=== PATIENT | male | born 1955 | race Caucasian/White ===

== ENCOUNTER 2019-10-23 00:02 | Inpatient (IN) | payer OTHER ==
[2019-10-23 00:23] VITALS: BMI 33.7
--- NOTE | 2019-10-23 00:39 | PDOC ---
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 He stated that the pain started yesterday, localized in the right quadrants. He had watery bowel movements yesterday, otherwise last solid stool was 3 days ago. Reports nausea, vomiting. Denies chest pain, SOB, fever, dysuria, testicular pain/swelling, hematochezia HPI PMH: as in HPI SH: as in HPI Meds: Allergies: NKDA Tob/Etoh/Rec drugs: negx3 PCP: ROS GENERAL/CONSTITUTIONAL: No fever or chills. No weakness. HEENT: No change in vision. No ear pain or discharge. No sore throat. CARDIOVASCULAR: No chest pain or shortness of breath RESPIRATORY: No cough, wheezing, or hemoptysis. GASTROINTESTINAL: +nausea, vomiting; no diarrhea or constipation. GENITOURINARY: No dysuria, frequency, or change in urination. MUSCULOSKELETAL: No joint or muscle swelling or pain. No neck or back pain. SKIN: No rash NEUROLOGIC: No headache, vertigo, loss of consciousness, or change in strength/sensation. ENDOCRINE: No increased thirst. No abnormal weight change HEMATOLOGIC/LYMPHATIC: No anemia, easy bleeding, or history of blood clots. ALLERGIC/IMMUNOLOGIC: No hives or skin allergy. PE GENERAL: Awake, alert, and fully oriented, in no acute distress HEAD: No signs of trauma, normocephalic, atraumatic EYES: PERRLA, EOMI, sclera anicteric, conjunctiva clear ENT: Auricles normal inspection, hearing grossly normal, nares patent, oropharynx clear without exudates. Moist mucosa NECK: Normal ROM, supple, no LAD, JVD, or masses HEART: Regular rate and rhythm, normal S1 and S2, no murmurs, rubs or gallops, peripheral pulses normal and equal bilaterally. LUNGS: No distress, speaks full sentences, clear to auscultation bilaterally ABDOMEN: Distended, diffusely mild tenderness, normoactive bowel sounds. No guarding, no rebound. No masses EXTREMITIES: Normal inspection, Normal range of motion, no edema. No clubbing or cyanosis. NEUROLOGICAL: Normal speech, no focal sensorimotor deficits SKIN: Warm, Dry, normal turgor, no rashes or lesions noted Assessment and Plan 1. SBO 2. Mesenteric ischemia 3. Bowel perforation 4. Volvulus 5. Diverticulitis 6. Gastritis Franck Camejo, PGY1 Emergency Medicine Past History - Medical History Allergies/Adverse Reactions: Allergies Allergy/AdvReac Type Severity Reaction Status Date / Time No Known Allergies Allergy Verified 08/09/19 05:15 Home Medications: Ambulatory Orders Aspirin [Aspirin EC] 81 mg PO DAILY 05/22/19 Atorvastatin Calcium 10 mg PO DAILY 05/22/19 Cholecalciferol (Vitamin D3) [Vitamin D3 -] 1,000 unit PO DAILY 05/22/19 Metoprolol Tartrate 25 mg PO BID 05/22/19 Omeprazole 20 mg PO DAILY 05/22/19 Finasteride 5 mg PO DAILY 08/12/19 Amoxicillin/Potassium Clav [Augmentin 875-125 Tablet] 1 each PO BID #10 tablet 08/13/19 Docusate Sodium [Colace -] 100 mg PO BID PRN #60 cap 08/13/19 Anemia: No Asthma: No Cancer: No Cardiac Disorders: No CVA: No COPD: No CHF: No Dementia: No Diabetes: No GI Disorders: Yes (GERD) Disorders: Yes (HX of UTIs) HTN: Yes Hypercholesterolemia: No Liver Disease: No Seizures: No Thyroid Disease: No - Surgical History Abdominal Surgery: Yes Appendectomy: Yes Cardiac Surgery: No Cholecystectomy: Yes Lung Surgery: No Neurologic Surgery: No Orthopedic Surgery: No - Immunization History Immunization Up to Date: Yes - Psycho-Social/Smoking History Smoking History: Unknown if ever smoked Have you smoked in the past 12 months: No - Substance Abuse Hx (Audit-C & DAST Scrn) How often the patient has a drink containing alcohol: Never Score: In Men: 4 or > Positive; In Women: 3 or > Positive: 0 Screen Result (Pos requires Nsg. Audit-10AR): Negative In the last yr the pt used illegal drug/Rx for NonMed reason: No Score: Yes response is considered Positive: 0 Screen Result (Positive result requires Nsg. DAST-10): Negative *Physical Exam - Vital Signs Last Vital Signs Temp Pulse Resp BP Pulse Ox 99.1 F 112 H 18 118/88 96 10/23/19 00:18 10/23/19 00:18 10/23/19 00:18 10/23/19 00:18 10/23/19 00:18 ED Treatment Course - LABORATORY CBC & Chemistry Diagram: 10/23/19 01:00 10/23/19 01:00 - RADIOLOGY Radiology Studies Ordered: Upright and supine abdomen + CXR Radiograph Interpretation: ABDOMEN FLAT \T\ UPRIGHT FINDINGS: Multiple air distended loops of bowel suggests a bowel obstruction. Medical quadrant cholecystectomy clips are noted. The lung bases are clear. The re is no solid organomegaly or abnormal calcifications. Degenerative changes of the spine. IMPRESSION: Possible bowel obstruction. 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 Abdomen was distended, mildly tender, without rebound or guarding. DDx: 1. SBO - strong suspicion with prior history and lack of BMs 2. Mesenteric ischemia 3. Bowel perforation - unlikely without peritoneal signs 4. Volvulus - unlikely without peritoneal signs 5. Diverticulitis - no hematochezia, hx is stronger suggestion of SBO -Given 4mg zofran Labs notable for: -CBC wnl -CMP: K 3.4, bili and alk phos elevated consistent with previous labs -lipase wnl -UA +1 blood, +3 leukocyte esterace, 2700 WBC, 900 bacteria Patient has asymptomatic bacteruria, there's no indication to treat with antibiotics. Plain films were preferred over abdomen CT since the patient had multiple abdominal CT's in the past, and likely unnecessary because the patient is unlikely a surgical candidate at this time and further imaging is up to the discretion of general surgery. ABDOMEN FLAT/T/UPRIGHT: Multiple air distended loops of bowel suggests a bowel obstruction. Discussed HPI, ED course, and decision to admit with Karma Casey NP. NG tube placed and NPO ordered. Pt admitted to m/s. Gen surg consulted, spoke with Dr. Franklin, agreed to see the patient. Discharge - Discharge Information Problems reviewed: Yes Clinical Impression/Diagnosis: SBO (small bowel obstruction) - Admission Yes - Follow up/Referral - Patient Discharge Instructions - Post Discharge Activity
[2019-10-23] MEDS ORDERED: ONDANSETRON 4 MG/2 ML VIAL IVPUSH ONE (01:07)
[2019-10-23] MEDS ORDERED: LACTATED RINGERS SOLUTION 1000 ML INFUS.BAG IV ONE (01:11)
--- NOTE | 2019-10-23 01:32 | PDOC ---
Documentation entered by Nichole Garcia SCRIBE, acting as scribe for Marian Arce MD. Marian Arce MD: This documentation has been prepared by the Radha jacob Sydney, SCRIBE, under my direction and personally reviewed by me in its entirety. I confirm that the documentation accurately reflects all work, treatment, procedures, and medical decision making performed by me. 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 States feels similar to previous episodes of obstruction. Reports nausea and vomiting. Denies fever, chills, headache, chest pain, shortness of breath, or urinary changes. Allergies: NKDA PCP: Dr. Prado - Physicial Exam PE: 10/23/19 01:29 General: non-toxic appearing Abdomen: obese limiting exam, soft, mild diffuse ttp, no rebound, no guarding - Medical Decision Making 10/23/19 01:29 64 yo M p/w abdominal pain, concern for SBO given h/o obstruction in hte past, also possible constipation vs. gastritis vs. enteritis vs. colitis vs. diverticulitis. Plan: -labs -cxr -will start with AXR as patient has had multiple CT scans in the past for same managed conservatively with medical management alone -pain control as needed -reassess This clinical encounter is taking place during a federal and state health care emergency attributable to the novel [place] Virus pandemic. The Head Of Art of the Department of Health and Human Services has declared, pursuant to the Public Health Service Act 319F-3 (42 U.S.C. 247d-6d), that a covered persons activities related to medical countermeasures against COVID-19 will be immune from liability under Federal and State law. 10/23/19 03:43 AXR with findings concerning for obstruction. Will place NG tube and place surgery consult and admit patient. Discharge - Discharge Information Problems reviewed: Yes Clinical Impression/Diagnosis: SBO (small bowel obstruction) - Follow up/Referral Referrals: Tatyana Prado [Primary Care Provider] - - Patient Discharge Instructions - Post Discharge Activity
[2019-10-23 01:37] LABS: BASO % 0.7 % (0-2.0); EOS % 1.2 % (0-4.5); HEMOGLOBIN 14.9 GM/dL (11.7-16.9); LYMPH % 9.6 % (8-40); MCH 25.9 pg (25.7-33.7); MCHC 33.1 g/dl (32.0-35.9); MEAN CELL VOLUME 78.3 fl (80-96); MEAN PLT VOLUME 8.3 fl (7.5-11.1); MONO % 8.9 % (3.8-10.2); NEUT % 79.6 % (42.8-82.8); PLATELET COUNT 257 K/MM3 (134-434); RBC 5.75 M/mm3 (4.00-5.60); RDW 14.7 % (11.9-15.9); WHITE BLOOD COUNT 10.3 K/mm3 (4.0-10.0)
[2019-10-23 01:47] LABS: ALBUMIN 3.4 g/dl (3.4-5.0); BILIRUBIN,TOTAL 1.8 mg/dL (0.2-1); BLOOD UREA NITROGEN 16.3 mg/dL (7-18); CALCIUM 8.9 mg/dL (8.5-10.1); CREATININE 1.3 mg/dL (0.55-1.3); POTASSIUM 3.4 mmol/L (3.5-5.1); TOT PROT 7.2 g/dl (6.4-8.2)
[2019-10-23 02:19] LABS: EPI CELLS 2 /uL (0-25.1); HYALINE CASTS 2 /uL (0-3.1); PH,URINE 5.5 (5.0-8.0); URINE APPEARANCE CLOUDY; URINE BACTERIA 742 /uL (0-1359); URINE BILIRUBIN NEGATIVE (NEGATIVE); URINE COLOR YELLOW; URINE GLUCOSE (UA) NEGATIVE (NEGATIVE); URINE KETONE NEGATIVE (NEGATIVE); URINE LEUK ESTERASE 3+ (NEGATIVE); URINE NITRITE NEGATIVE (NEGATIVE); URINE PROTEIN TRACE (NEGATIVE); URINE RBC 86 /uL (0-23.9); URINE WBC 2798 /uL (0-25.8)
[2019-10-23] MEDS ORDERED: LIDOCAINE HCL 2% JELLY 10 ML CARTRIDGE UR ONE (03:18)
[2019-10-23] MEDS ORDERED: LIDOCAINE HCL 2% JELLY 10 ML CARTRIDGE ONE (03:31)
[2019-10-23] MEDS ORDERED: LIDOCAINE HCL 2% JELLY (5 ML/TUBE) ONE (03:43)
[2019-10-23] MEDS ORDERED: DEXTROSE 5%-0.45% SALINE 1,000 ML IV SCH (04:00)
[2019-10-23] MEDS ORDERED: CEFTRIAXONE 1 GM in DEXTROSE 5%-WATER - 50 ML IVPB ONE (04:03)
--- NOTE | 2019-10-23 04:03 | HP ---
Admitting History and Physical - Primary Care Physician PCP: Tatyana Prado - Admission Chief Complaint: Abdominal Pain, Constipation History of Present Illness: This is a 64 y/o male with a significant past medical history of multiple SBOs (complicated fistula), HTN, PE, Nephrolithiasis, UTIs. Who presents to the ED with diffuse abdominal pain, nausea, dry heaves, and watery loose stools x 1 day. He reports not having a solid BM in 3 days. Patient reports that the abdominal pain is similar to his previous bowel obstructions. Patient denies fever, but reports having chills while in the ED. He denies cough, SOB, dizziness, WALL, CP, palpitations, melena, hematochezia, hematuria, dysuria. Patient denies sick contacts or recent travel. ED course was noted for: (1) Abdominal Xray image- multiple air distended loops, suggests bowel obstruction (2) WBC 10.3 (3) K- 3.4 (4) UA- cloudy, +1 blood, +3 leukocyte esterase, 2798 WBC, 742 Bacteria History Source: Patient Limitations to Obtaining History: No Limitations - Past Medical History Cardiovascular: Yes: HTN, Hyperlipdemia Pulmonary: Yes: Pulmonary Embolus (2013 (not on anticoagulation currently)) Gastrointestinal: Yes: Other (SBO) Renal/: Yes: BPH, Renal Calculi, UTI Musculoskeletal: Yes: Chronic low back pain - Past Surgical History Past Surgical History: Yes: Cholecystectomy, Colonoscopy, Hernia Repair (multiple - mesh present (2014) (prev mesh removed in 2013)), Upper Endoscopy - Smoking History Smoking history: Unknown if ever smoked Have you smoked in the past 12 months: No - Alcohol/Substance Use Hx Alcohol Use: No History of Substance Use: reports: None - Social History Usual Living Arrangement: Yes: Alone ADL: Independent Occupation: CPA History of Recent Travel: No Home Medications - Allergies Allergies/Adverse Reactions: Allergies Allergy/AdvReac Type Severity Reaction Status Date / Time No Known Allergies Allergy Verified 08/09/19 05:15 - Home Medications Home Medications: Ambulatory Orders Aspirin [Aspirin EC] 81 mg PO DAILY 05/22/19 Atorvastatin Calcium 10 mg PO DAILY 05/22/19 Cholecalciferol (Vitamin D3) [Vitamin D3 -] 1,000 unit PO DAILY 05/22/19 Metoprolol Tartrate 25 mg PO BID 05/22/19 Omeprazole 20 mg PO DAILY 05/22/19 Finasteride 5 mg PO DAILY 08/12/19 Amoxicillin/Potassium Clav [Augmentin 875-125 Tablet] 1 each PO BID #10 tablet 08/13/19 Docusate Sodium [Colace -] 100 mg PO BID PRN #60 cap 08/13/19 Family Medical History Family History: As Documented Family Hx Cancer: Father (Pancreatic) Family Hx Diabetes: Mother Review of Systems - Review of Systems Constitutional: reports: Chills, Loss of Appetite Eyes: reports: No Symptoms HENT: reports: No Symptoms Neck: reports: No Symptoms Cardiovascular: reports: No Symptoms Respiratory: reports: No Symptoms Gastrointestinal: reports: Abdominal Pain, Bloating, Constipation, Diarrhea, Nausea Genitourinary: reports: No Symptoms Breasts: reports: No Symptoms Reported Musculoskeletal: reports: Back Pain Integumentary: reports: No Symptoms Neurological: reports: No Symptoms Endocrine: reports: No Symptoms Hematology/Lymphatic: reports: No Symptoms Psychiatric: reports: No Symptoms Pain Intensity: 8 Physical Examination Vital Signs: Vital Signs Temperature 99.1 F 10/23/19 00:18 Pulse Rate 112 H 10/23/19 00:18 Respiratory Rate 18 10/23/19 00:18 Blood Pressure 118/88 10/23/19 00:18 O2 Sat by Pulse Oximetry (%) 96 10/23/19 00:18 Constitutional: Yes: Well Nourished, Mild Distress, Obese Eyes: Yes: Conjunctiva Clear, EOM Intact, PERRL HENT: Yes: Atraumatic, Normocephalic, Other (dry mucousa NGT- nare) Neck: Yes: Supple, Trachea Midline Cardiovascular: Yes: Regular Rate and Rhythm, S1, S2 Respiratory: Yes: Regular, CTA Bilaterally Gastrointestinal: Yes: Abdomen, Obese, Distention, Hyperactive Bowel Sounds, Tenderness, Tenderness, Epigastrium Renal/: Yes: WNL Breast(s): Yes: WNL Musculoskeletal: Yes: Back Pain Extremities: Yes: WNL Edema: No Peripheral Pulses WNL: Yes Wound/Incision: Yes: Other (surgical scar midline) Neurological: Yes: WNL, Alert, Oriented, Cran Nerves II-XII Intact ...Motor Strength: WNL Psychiatric: Yes: WNL, Alert, Oriented Labs: CBC, BMP 10/23/19 01:00 10/23/19 01:00 Laboratory Results - last 24 hr 10/23/19 10/23/19 10/23/19 01:00 01:00 01:56 WBC 10.3 H RBC 5.75 H Hgb 14.9 Hct 45.0 MCV 78.3 L MCH 25.9 MCHC 33.1 RDW 14.7 Plt Count 257 D MPV 8.3 Absolute Neuts (auto) 8.2 H Neutrophils % 79.6 Lymphocytes % 9.6 D Monocytes % 8.9 Eosinophils % 1.2 Basophils % 0.7 Nucleated RBC % 0 Sodium 138 Potassium 3.4 L Chloride 100 Carbon Dioxide 28 Anion Gap 10 BUN 16.3 Creatinine 1.3 Est GFR (CKD-EPI)AfAm 67.78 Est GFR (CKD-EPI)NonAf 58.48 Random Glucose 119 H Lactic Acid Calcium 8.9 Total Bilirubin 1.8 H AST 18 ALT 27 Alkaline Phosphatase 130 H Total Protein 7.2 Albumin 3.4 Lipase 97 Urine Color Yellow Urine Appearance Cloudy Urine pH 5.5 Ur Specific [place] 1.017 Urine Protein Trace Urine Glucose (UA) Negative Urine Ketones Negative Urine Blood 1+ H Urine Nitrite Negative Urine Bilirubin Negative Urine Urobilinogen 1.0 Ur Leukocyte Esterase 3+ H Urine WBC (Auto) 2798 Urine RBC (Auto) 86 Urine Casts (Auto) 2 U Epithel Cells (Auto) 2 Urine Bacteria (Auto) 742 10/23/19 03:30 WBC RBC Hgb Hct MCV MCH MCHC RDW Plt Count MPV Absolute Neuts (auto) Neutrophils % Lymphocytes % Monocytes % Eosinophils % Basophils % Nucleated RBC % Sodium Potassium Chloride Carbon Dioxide Anion Gap BUN Creatinine Est GFR (CKD-EPI)AfAm Est GFR (CKD-EPI)NonAf Random Glucose Lactic Acid 1.8 Calcium Total Bilirubin AST ALT Alkaline Phosphatase Total Protein Albumin Lipase Urine Color Urine Appearance Urine pH Ur Specific [place] Urine Protein Urine Glucose (UA) Urine Ketones Urine Blood Urine Nitrite Urine Bilirubin Urine Urobilinogen Ur Leukocyte Esterase Urine WBC (Auto) Urine RBC (Auto) Urine Casts (Auto) U Epithel Cells (Auto) Urine Bacteria (Auto) Intake & Output 10/20/19 10/21/19 10/22/19 10/23/19 23:59 23:59 23:59 23:59 Intake Total 150 Output Total 250 Balance -100 Weight 112.7 kg Imaging - Results Chest X-ray: Image Reviewed X-ray: Image Reviewed Problem List - Problems (1) SBO (small bowel obstruction) Assessment/Plan: Likely secondary to adhesions Abdominal Xray image reviewed- multiple air distended loops, suggests bowel obstruction WBC 10.3 T Max 99.1 Appreciate Surgical Consult- Dr Franklin aware- per ED resident NGT- low wall suction NPO IVF Ofirmev prn Zofran prn Monitor CBC, CMP Monitor vitals Code(s): K56.609 - UNSP INTESTNL OBST, UNSP TO PARTIAL VERSUS COMPLETE OBST (2) UTI (urinary tract infection) Assessment/Plan: UA- cloudy, +1 blood, +3 leukocyte esterase, 2798 wbc, 742 bacteria Urine Culture-pending Patient is asymptomatic, hx of UTIs Enterococcus Faecalis hx Will treat empirically with Ceftriaxone, until culture resulted Monitor CBC Monitor vitals Code(s): N39.0 - URINARY TRACT INFECTION, SITE NOT SPECIFIED (3) GERD without esophagitis Assessment/Plan: stable PPI Code(s): K21.9 - GASTRO-ESOPHAGEAL REFLUX DISEASE WITHOUT ESOPHAGITIS (4) BPH (benign prostatic hyperplasia) Assessment/Plan: will hold med for now 2/2 SBO Code(s): N40.0 - BENIGN PROSTATIC HYPERPLASIA WITHOUT LOWER URINRY TRACT SYMP Qualifiers: Lower urinary tract symptom presence: symptoms absent Qualified Code(s): N40.0 - Benign prostatic hyperplasia without lower urinary tract symptoms (5) Hypertension Assessment/Plan: stable Monitor BP Hold PO med for now Treat with Lopressor IV as needed Monitor renal function Code(s): I10 - ESSENTIAL (PRIMARY) HYPERTENSION Qualifiers: Hypertension type: essential hypertension Qualified Code(s): I10 - Essential (primary) hypertension (6) Encounter for screening laboratory testing for COVID-19 virus Assessment/Plan: Low Risk COVID PCR- pending Isolation Precautions Code(s): Z11.59 - ENCOUNTER FOR SCREENING FOR OTHER VIRAL DISEASES Assessment/Plan This is a 64 y/o male with a significant past medical history of multiple SBOs (complicated by fistula), HTN, PE, Nephrolithiasis, UTIs. Admitted to M/S for Bowel Obstruction, UTI for further evaluation of their emergent condition. Plan: See Problem List FEN D51/2NS@75ml/hr Replete lytes prn NPO DVT ppx OOB SCDs Lovenox SQ Dispo: Requires Inpatient Care Visit type - Emergency Visit Emergency Visit: Yes ED Registration Date: 10/23/19 Care time: The patient presented to the Emergency Department on the above date and was hospitalized for further evaluation of their emergent condition. - New Patient This patient is new to me today: Yes Date on this admission: 10/23/19 - Critical Care Critical Care patient: No
[2019-10-23] MEDS ORDERED: KCL 10 MEQ IVPB 10 MEQ/100 ML INFUS.BAG IVPB SCH (04:15)
[2019-10-23] MEDS ORDERED: CEFTRIAXONE 1 GM/50 ML BAG ONE (04:16)
[2019-10-23] MEDS ORDERED: KCL 10 MEQ IVPB 10 MEQ/100 ML INFUS.BAG IVPB ONE (04:16)
[2019-10-23 04:55] LABS: URINE CRYSTALS CA OXALATE /hpf
[2019-10-23] MEDS ORDERED: ACETAMINOPHEN 1000 MG/100 ML VIAL (NON FORMULARY) IVPB PRN (05:29)
[2019-10-23] MEDS ORDERED: ONDANSETRON 4 MG/2 ML VIAL IVPUSH PRN (05:30)
--- NOTE | 2019-10-23 11:13 | CONSULT ---
- Consultation REQUESTING PROVIDER: Franck Camejo MD CONSULT REQUEST: We have been asked to surgically evaluate this patient for a recurrent small bowel obstruction PCP:Tomás Rossi HISTORY OF PRESENT ILLNESS: CASSANDRA who is a 64 y/o W male who presented to the [facility] ED w/nausea and vomiting and abdominal pain after taking Miralax to relieve his constipation; the patient has been here w/the same c/o's at least 2 other occasions in the recent past and was dxed w/an SBO; he has responded to conservative tx. in the past; he has been sick for 24 hours. past admissions have been reviewed including when I last consulted on him 08/09/2019-08/13/2019; hospital course to date reviewed. PMHx: HLD/osteoporosis/HTN/BPH/pulmonary embolus PSHx: cholecystetomy, incisional hernia repairs w/mesh and removal and repeat incisional hernia repair w/mesh, SBO's w/laparotomies and SB resection (at least 2), all at [facility] including laparotomy for surgical repair and related procedures for an EC fistula. Home Medications Medication Instructions Recorded Aspirin [Aspirin EC] 81 mg PO DAILY 05/22/19 Atorvastatin Calcium 10 mg PO DAILY 05/22/19 Cholecalciferol (Vitamin D3) 1,000 unit PO DAILY 05/22/19 [Vitamin D3 -] Metoprolol Tartrate 25 mg PO BID 05/22/19 Omeprazole 20 mg PO DAILY 05/22/19 Finasteride 5 mg PO DAILY 08/12/19 Amoxicillin/Potassium Clav 1 each PO BID #10 tablet 08/13/19 [Augmentin 875-125 Tablet] Docusate Sodium [Colace -] 100 mg PO BID PRN #60 cap 08/13/19 Allergies Allergy/AdvReac Type Severity Reaction Status Date / Time No Known Allergies Allergy Verified 08/09/19 05:15 REVIEW OF SYSTEMS: CONSTITUTIONAL: Absent: fever, chills, diaphoresis, generalized weakness, malaise, loss of appetite, weight change CARDIOVASCULAR: Absent: chest pain, syncope, palpitations, irregular heart rate, lightheadedness, peripheral edema RESPIRATORY: Absent: cough, shortness of breath, dyspnea with exertion, wheezing, stridor, hemoptysis GASTROINTESTINAL: Absent: abdominal pain, abdominal distension, nausea, vomiting, Absent:diarrhea, Present: constipation, Absent: melena, hematochezia GENITOURINARY: Present: dysuria, frequency, urgency, hesitancy, Absent: hematuria, flank pain, genital pain MUSCULOSKELETAL: Absent: myalgia, arthralgia, joint swelling, back pain, neck pain SKIN: Absent: rash, itching, pallor HEMATOLOGIC/IMMUNOLOGIC: Absent: easy bleeding, easy bruising, lymphadenopathy NEUROLOGIC: Absent: headache, focal weakness, paresthesias, dizziness, unsteady gait, seizure, mental status changes, bladder or bowel incontinence PSYCHIATRIC: Absent: anxiety, depression, suicidal or homicidal ideation, hallucinations. PHYSICAL EXAM: GENERAL: Awake, alert, and fully oriented, in no acute distress. HEAD: Normal with no signs of trauma. EYES: PERRL, sclera anicteric, conjunctiva clear. NECK: Normal ROM, supple without lymphadenopathy, JVD, or masses. ABDOMEN: Soft, nontender, markedly distended, absent bowel sounds, no guarding, no rebound, no masses. No organomegaly. Healed surgical scras; no hernias. MUSCULOSKELETAL: Normal ROM at all joints. No bony deformities or tenderness. No CVA tenderness. UPPER EXTREMITIES: 2+ pulses, warm, well-perfused. No cyanosis. Cap refill <2 seconds. No peripheral edema. LOWER EXTREMITIES: 2+ pulses, warm, well-perfused. No calf tenderness. No peripheral edema. NEUROLOGICAL: Normal speech, gait not observed. PSYCH: Cooperative. Good eye contact. Appropriate mood and affect. SKIN: Warm, dry, normal turgor, no rashes or lesions noted. Vital Signs Temperature 98.3 F 10/23/19 09:37 Pulse Rate 99 H 10/23/19 09:37 Respiratory Rate 20 10/23/19 09:37 Blood Pressure 127/86 10/23/19 09:37 O2 Sat by Pulse Oximetry (%) 93 L 10/23/19 09:46 Lab Results WBC 10.3 K/mm3 (4.0-10.0) H 10/23/19 01:00 RBC 5.75 M/mm3 (4.00-5.60) H 10/23/19 01:00 Hgb 14.9 GM/dL (11.7-16.9) 10/23/19 01:00 Hct 45.0 % (35.4-49) 10/23/19 01:00 MCV 78.3 fl (80-96) L 10/23/19 01:00 MCHC 33.1 g/dl (32.0-35.9) 10/23/19 01:00 RDW 14.7 % (11.9-15.9) 10/23/19 01:00 Plt Count 257 K/MM3 (134-434) D 10/23/19 01:00 Sodium 138 mmol/L (136-145) 10/23/19 01:00 Potassium 3.4 mmol/L (3.5-5.1) L 10/23/19 01:00 Chloride 100 mmol/L (98-107) 10/23/19 01:00 Carbon Dioxide 28 mmol/L (21-32) 10/23/19 01:00 Anion Gap 10 MMOL/L (8-16) 10/23/19 01:00 BUN 16.3 mg/dL (7-18) 10/23/19 01:00 Creatinine 1.3 mg/dL (0.55-1.3) 10/23/19 01:00 Random Glucose 119 mg/dL (74-106) H 10/23/19 01:00 Calcium 8.9 mg/dL (8.5-10.1) 10/23/19 01:00 Imaging to date reviewed and c/w an SBO. IMP: recurrent SBO PLAN: NPO/IVF/NGT/serial exams and xrays. Joaquim Franklin MD FACS
--- NOTE | 2019-10-23 11:30 | PN ---
Physical Exam: SUBJECTIVE: Patient seen and examined Patient is comfortable has no shortness of breath, fever, nausea vomiting. He had NG tube suction. Seen by surgery today. Dr. Franklin. He just passed flatus. OBJECTIVE: Vital Signs Period Temp Pulse Resp BP Sys/Steward Pulse Ox Last 24 Hr 98.3 F-99.1 F 99-112 18-20 118-127/69-88 93-96 GENERAL: The patient is awake, alert, and fully oriented, in no acute distress. HEAD: Normal with no signs of trauma. EYES: PERRL, extraocular movements intact, sclera anicteric, conjunctiva clear. No ptosis. ENT: Ears normal, nares patent, oropharynx clear without exudates, moist mucous membranes. NECK: Trachea midline, full range of motion, supple. LUNGS: Breath sounds equal, clear to auscultation bilaterally, no wheezes, no crackles, no accessory muscle use. HEART: Regular rate and rhythm, S1, S2 without murmur, rub or gallop. ABDOMEN: Soft, distended and bowel sounds sluggish rebound, no hepatosplenomegaly, no masses. EXTREMITIES: 2+ pulses, warm, well-perfused, no edema. Laboratory Results - last 24 hr 10/23/19 10/23/19 10/23/19 01:00 01:00 01:56 WBC 10.3 H RBC 5.75 H Hgb 14.9 Hct 45.0 MCV 78.3 L MCH 25.9 MCHC 33.1 RDW 14.7 Plt Count 257 D MPV 8.3 Absolute Neuts (auto) 8.2 H Neutrophils % 79.6 Lymphocytes % 9.6 D Monocytes % 8.9 Eosinophils % 1.2 Basophils % 0.7 Nucleated RBC % 0 Sodium 138 Potassium 3.4 L Chloride 100 Carbon Dioxide 28 Anion Gap 10 BUN 16.3 Creatinine 1.3 Est GFR (CKD-EPI)AfAm 67.78 Est GFR (CKD-EPI)NonAf 58.48 Random Glucose 119 H Lactic Acid Calcium 8.9 Total Bilirubin 1.8 H AST 18 ALT 27 Alkaline Phosphatase 130 H Total Protein 7.2 Albumin 3.4 Lipase 97 Urine Color Yellow Urine Appearance Cloudy Urine pH 5.5 Ur Specific [place] 1.017 Urine Protein Trace Urine Glucose (UA) Negative Urine Ketones Negative Urine Blood 1+ H Urine Nitrite Negative Urine Bilirubin Negative Urine Urobilinogen 1.0 Ur Leukocyte Esterase 3+ H Urine WBC (Auto) 2798 Urine RBC (Auto) 86 Urine Casts (Auto) 2 U Epithel Cells (Auto) 2 Urine Crystals (Auto) Ca oxalate Urine Bacteria (Auto) 742 10/23/19 03:30 WBC RBC Hgb Hct MCV MCH MCHC RDW Plt Count MPV Absolute Neuts (auto) Neutrophils % Lymphocytes % Monocytes % Eosinophils % Basophils % Nucleated RBC % Sodium Potassium Chloride Carbon Dioxide Anion Gap BUN Creatinine Est GFR (CKD-EPI)AfAm Est GFR (CKD-EPI)NonAf Random Glucose Lactic Acid 1.8 Calcium Total Bilirubin AST ALT Alkaline Phosphatase Total Protein Albumin Lipase Urine Color Urine Appearance Urine pH Ur Specific [place] Urine Protein Urine Glucose (UA) Urine Ketones Urine Blood Urine Nitrite Urine Bilirubin Urine Urobilinogen Ur Leukocyte Esterase Urine WBC (Auto) Urine RBC (Auto) Urine Casts (Auto) U Epithel Cells (Auto) Urine Crystals (Auto) Urine Bacteria (Auto) Active Medications Generic Name Dose Route Start Last Admin Trade Name Freq PRN Reason Stop Dose Admin Acetaminophen 1,000 mg 10/23/19 05:29 Ofirmev Injection - IVPB 10/24/19 05:29 Q6H PRN PAIN LEVEL 4 - 6 Enoxaparin Sodium 40 mg 10/23/19 10:00 Lovenox - SQ DAILY [facility] Ceftriaxone Sodium 1 gm/ 50 mls @ 200 mls/hr 10/24/19 10:00 Dextrose IVPB DAILY [facility] Protocol Potassium Chloride/Dextrose/Sod Cl 10 meq in 1,000 mls @ 83 mls/hr 10/23/19 10:30 D5-1/2ns+10 Meq Kcl - IV ASDIR [facility] Ondansetron HCl 4 mg 10/23/19 05:30 Zofran Injection IVPUSH Q6H PRN NAUSEA Pantoprazole Sodium 40 mg 10/23/19 10:00 Protonix Iv IVPUSH DAILY [facility] ASSESSMENT/PLAN: This is a 64 y/o male with a significant past medical history of multiple SBOs (complicated fistula), HTN, PE, Nephrolithiasis, UTIs. Who presents to the ED with diffuse abdominal pain Plan Surgery consult NG tube with low wall suction N.p.o. IVF has been changed to D5 half with 20 of K. Potassium is 3.4. IV as needed Zofran. UTI he is only on antibiotic. Hypertension will continue his Lopressor. DVT prophylaxis and IV fluids. Visit type - Emergency Visit Emergency Visit: Yes ED Registration Date: 10/23/19 Care time: The patient presented to the Emergency Department on the above date and was hospitalized for further evaluation of their emergent condition. - New Patient This patient is new to me today: Yes Date on this admission: 10/23/19 - Critical Care Critical Care patient: No - Discharge Referral Referred to [facility] Med P.C.: No
--- NOTE | 2019-10-23 11:53 | EKG ---
Test Reason : Blood Pressure : / mmHG Vent. Rate : 101 BPM Atrial Rate : 101 BPM P-R Int : 150 ms QRS Dur : 102 ms QT Int : 376 ms P-R-T Axes : 003 065 020 degrees QTc Int : 487 ms SINUS TACHYCARDIA WHEN COMPARED WITH ECG OF 09-AUG-2019 07:24, NO SIGNIFICANT CHANGE WAS FOUND Confirmed by SAGE ALMONTE MD ([id number]) on 10/23/2019 11:53:43 AM Referred By: Confirmed By:SAGE ALMONTE MD
[2019-10-23] MEDS: ENOXAPARIN NA (PORCINE) 40 MG/0.4 ML DISP.SYRIN SQ SCH (12:35)
[2019-10-23] MEDS: PANTOPRAZOLE SODIUM 40 MG VIAL IVPUSH SCH (12:35)
[2019-10-23] MEDS: D5-1/2NS+10 MEQ KCL - 10 MEQ/1,000 ML INFUS.BAG IV SCH (12:38)
[2019-10-23] MEDS ORDERED: BENZOCAINE/MENTH/CETYLPYRD CL 1 EACH LOZENGE MM PRN (16:01)
[2019-10-23] MEDS ORDERED: BISACODYL 10 MG SUPP.RECT PR ONE (16:02)
[2019-10-24] MEDS: D5-1/2NS+10 MEQ KCL - 10 MEQ/1,000 ML INFUS.BAG IV SCH ×2 (01:35→21:46)
--- NOTE | 2019-10-24 08:15 | PN ---
Progress Note (short form) - Note Progress Note: GEneral Surgery: PT states that he passed flatus 5 times yesterday, no BM. No nausea or emesis. Minimal abd pain. Vital Signs Period Temp Pulse Resp BP Sys/Steward Pulse Ox Last 24 Hr 98.1 F-98.7 F 82-99 18-20 127-141/76-86 93-97 NGT: 570ml bilious GEN: A&0x3, NAD ABD: soft, mild distention. Mild RLQ/LLQ tenderness to lateral abd. No rebound or guarding CBC, BMP 10/23/19 01:00 10/23/19 01:00 Xray: No A/F levels A/p: 64 yo male with a history of previous abdominal surgery. Now with SBO Repeat xray shows improvement in SBO NGT removal and begin clears D/w Dr. Franklin hypokalemia yesterday to 3.4, ordered repeat BMP <Isi Hernandez - Last Filed: 10/24/19 10:19> - Note Progress Note: Attending Surgeon: I personally saw and examined the patient. My examination reveals a patient with a small bowel obstruction. I discussed the case with the surgical PA and agree with their findings and plan of care with any exceptions as noted. ~ Joaquim Franklin MD, FACS <Joaquim Franklin - Last Filed: 10/28/19 10:37>
[2019-10-24] MEDS ORDERED: cefTRIAXone SODIUM 1 GM VIAL ONE (09:26)
[2019-10-24] MEDS ORDERED: DEXTROSE 5%-WATER - 50 ML IVPB ONE (09:26)
[2019-10-24] MEDS: ENOXAPARIN NA (PORCINE) 40 MG/0.4 ML DISP.SYRIN SQ SCH (09:38)
[2019-10-24] MEDS: PANTOPRAZOLE SODIUM 40 MG VIAL IVPUSH SCH (09:38)
[2019-10-24] MEDS: CEFTRIAXONE 1 GM in DEXTROSE 5%-WATER - 50 ML IVPB SCH (09:39)
[2019-10-24] MEDS ORDERED: PT OWN MED DRAWER 7, Y5N ONE (11:06)
[2019-10-24 11:50] LABS: BASO % 1.1 % (0-2.0); EOS % 4.8 % (0-4.5); HEMATOCRIT 40.8 % (35.4-49); HEMOGLOBIN 13.6 GM/dL (11.7-16.9); LYMPH % 16.1 % (8-40); MCH 26.3 pg (25.7-33.7); MCHC 33.4 g/dl (32.0-35.9); MEAN CELL VOLUME 78.9 fl (80-96); MEAN PLT VOLUME 7.9 fl (7.5-11.1); MONO % 9.3 % (3.8-10.2); NEUT % 68.7 % (42.8-82.8); PLATELET COUNT 201 K/MM3 (134-434); RBC 5.17 M/mm3 (4.00-5.60); RDW 14.7 % (11.9-15.9); WHITE BLOOD COUNT 6.2 K/mm3 (4.0-10.0)
[2019-10-24 12:24] LABS: ALBUMIN 3.2 g/dl (3.4-5.0); BILIRUBIN,TOTAL 1.6 mg/dL (0.2-1); BLOOD UREA NITROGEN 11.6 mg/dL (7-18); CALCIUM 8.4 mg/dL (8.5-10.1); CREATININE 1.2 mg/dL (0.55-1.3); POTASSIUM 3.5 mmol/L (3.5-5.1); TOT PROT 7.1 g/dl (6.4-8.2)
--- NOTE | 2019-10-24 18:00 | PN ---
Physical Exam: SUBJECTIVE: Patient seen and examined. Pt. states he is passing gas and tolerating PO liquids. Per RN Pt. had a liquid BM this afternoon. OBJECTIVE: Vital Signs Period Temp Pulse Resp BP Sys/Steward Pulse Ox Last 24 Hr 97.9 F-98.7 F 77-87 18-20 130-141/77-89 96-98 GENERAL: The patient is awake, alert, and in no acute distress. HEAD: Normal with no signs of trauma. EYES: Sclera anicteric, conjunctiva clear. ENT: Moist mucous membranes. LUNGS: Breath sounds equal anteriorly, clear to auscultation bilaterally, no wheezes, no crackles, no accessory muscle use. HEART: Regular rate and rhythm, S1, S2 without murmur ABDOMEN: Soft, nontender, nondistended but protuberant, obese, normoactive bowel sounds, no guarding, no rebound, dull to percussion, multiple surgical scars present EXTREMITIES: 2+ dorsal pedal pulses, warm, no calf tenderness, well-perfused, no edema. NEUROLOGICAL: Normal speech, gait not observed. PSYCH: Normal mood, normal affect. SKIN: Warm, dry, Laboratory Results - last 24 hr 10/23/19 10/24/19 10/24/19 01:56 11:30 11:30 WBC 6.2 RBC 5.17 Hgb 13.6 Hct 40.8 MCV 78.9 L MCH 26.3 MCHC 33.4 RDW 14.7 Plt Count 201 D MPV 7.9 Absolute Neuts (auto) 4.3 Neutrophils % 68.7 Lymphocytes % 16.1 D Monocytes % 9.3 Eosinophils % 4.8 H D Basophils % 1.1 Nucleated RBC % 0 Sodium 140 Potassium 3.5 Chloride 103 Carbon Dioxide 31 Anion Gap 6 L BUN 11.6 Creatinine 1.2 Est GFR (CKD-EPI)AfAm 74.66 Est GFR (CKD-EPI)NonAf 64.42 Random Glucose 98 Calcium 8.4 L Total Bilirubin 1.6 H AST 15 ALT 25 Alkaline Phosphatase 115 Total Protein 7.1 Albumin 3.2 L COVID-19 ([facility]) Not detected Active Medications Generic Name Dose Route Start Last Admin Trade Name Freq PRN Reason Stop Dose Admin Benzocaine/Menthol 1 each 10/23/19 16:01 10/24/19 02:26 Cepacol Lozenge - MM 1 each Q2H PRN Administration SORE THROAT Enoxaparin Sodium 40 mg 10/23/19 10:00 10/24/19 09:38 Lovenox - SQ 40 mg DAILY [facility] Administration Ceftriaxone Sodium 1 gm/ 50 mls @ 200 mls/hr 10/24/19 10:00 10/24/19 09:39 Dextrose IVPB 200 mls/hr DAILY [facility] Administration Protocol Potassium Chloride/Dextrose/Sod Cl 10 meq in 1,000 mls @ 83 mls/hr 10/23/19 10:30 10/24/19 01:35 D5-1/2ns+10 Meq Kcl - IV 83 mls/hr ASDIR [facility] Administration Ondansetron HCl 4 mg 10/23/19 05:30 Zofran Injection IVPUSH Q6H PRN NAUSEA Pantoprazole Sodium 40 mg 10/23/19 10:00 10/24/19 09:38 Protonix Iv IVPUSH 40 mg DAILY [facility] Administration ASSESSMENT/PLAN: Pt. is a 64 y/o male with a significant past medical history of multiple SBOs (s/p multiple abdominal surgeries including 2 for TREVON), HTN, PE, Nephrolithiasis, and recurrent UTIs presents to the ED with diffuse abdominal pain. Pt. admitted for SBO #Abdominal Pain 2/2 SBO Surgery consult appreciated NGT d/c, trial of clears c/w Protonix for GERD Zofran PRN for nausea #UTI c/w Ceftriaxone UA + BCx. Neg. to date; UCx. growing Enterococcus #HTN Medications needed reconciliation #FEN D5-1/2 NS +10meq K monitor electrolytes and replete as needed Clears #DVT Ppx. Lovenox 40 Visit type - Emergency Visit Emergency Visit: Yes ED Registration Date: 10/23/19 Care time: The patient presented to the Emergency Department on the above date and was hospitalized for further evaluation of their emergent condition. - New Patient This patient is new to me today: Yes Date on this admission: 10/24/19 - Critical Care Critical Care patient: No - Discharge Referral Referred to [facility] Med P.C.: No ATTENDING PHYSICIAN STATEMENT I saw and evaluated the patient. I reviewed the resident's note and discussed the case with the resident. I agree with the resident's findings and plan as documented. SUBJECTIVE: OBJECTIVE: ASSESSMENT AND PLAN:
[2019-10-24] MEDS: MELATONIN 5 MG TABLETS PO ONE ×2 (21:46→21:48)
[2019-10-25] MEDS ORDERED: ACETAMINOPHEN 325 MG TABLET (FP) PO ONE (04:44)
[2019-10-25] MEDS ORDERED: cefTRIAXone SODIUM 1 GM VIAL ONE (10:16)
[2019-10-25] MEDS ORDERED: DEXTROSE 5%-WATER - 50 ML IVPB ONE (10:17)
[2019-10-25] MEDS: PANTOPRAZOLE SODIUM 40 MG VIAL IVPUSH SCH (10:25)
[2019-10-25] MEDS: CEFTRIAXONE 1 GM in DEXTROSE 5%-WATER - 50 ML IVPB SCH (10:25)
[2019-10-25] MEDS: ENOXAPARIN NA (PORCINE) 40 MG/0.4 ML DISP.SYRIN SQ SCH (10:26)
--- NOTE | 2019-10-25 14:44 | PN ---
Teaching Attending Note Name of Resident: Kyle Duron ATTENDING PHYSICIAN STATEMENT I saw and evaluated the patient. I reviewed the resident's note and discussed the case with the resident. I agree with the resident's findings and plan as documented. SUBJECTIVE: Seen and examined at bedside. Patient had a loose bowel movement this morning. Tolerating p.o. No complaints OBJECTIVE Last Vital Signs Temp Pulse Resp BP Pulse Ox 98.3 F 84 20 148/73 97 10/25/19 14:30 10/25/19 14:30 10/25/19 14:30 10/25/19 14:30 10/25/19 14:30 PE: Per resident note Labs/Imaging: reviewed ASSESSMENT/PLAN 8-year-old male with a past medical history of multiple SBO's, hypertension, PE, nephrolithiasis, recurrent UTIs presents with SBO and UTI #Small bowel obstruction Surgery on board: Appreciate recommendations Now tolerating p.o., status post NG tube Protonix PRN Zofran #UTI secondary to Enterococcus faecalis Switch to p.o. Bactrim tomorrow
--- NOTE | 2019-10-25 14:54 | PN ---
Progress Note (short form) - Note Progress Note: 64yo M h/o sbo. Pt seen and examined at bedside. Pt states that his abd pain is completely gone. Pt is tolerating clears and passing flatus. Pt denies fever, chills, n/v. Last Vital Signs Temp Pulse Resp BP Pulse Ox 98.3 F 84 20 148/73 97 10/25/19 14:30 10/25/19 14:30 10/25/19 14:30 10/25/19 14:30 10/25/19 14:30 CBC, BMP 10/24/19 11:30 10/24/19 11:30 PE: Gen: A&O X3 Resp: breathing comfortably Abd; soft, nontender, nondistended Ext: No edema <Souleymane Duncan - Last Filed: 10/25/19 14:43> - Note Progress Note: Attending Surgeon: I personally saw and examined the patient. My examination reveals a patient with a recurrent sbo. I discussed the case with the surgical PA and agree with their findings and plan of care with any exceptions as noted. ~ Joaquim Franklin MD, FACS <Joaquim Franklin - Last Filed: 10/28/19 10:31> Problem List - Problems (1) SBO (small bowel obstruction) Assessment/Plan: Plan -will adv to regular diet -pt is cleared for discharged if tolerating diet Pt discussed with dr. Franklin who agrees with plan Code(s): K56.609 - UNSP INTESTNL OBST, UNSP TO PARTIAL VERSUS COMPLETE OBST <Souleymane Duncan - Last Filed: 10/25/19 14:43>
--- NOTE | 2019-10-25 16:38 | PN ---
Teaching Attending Note Name of Resident: Kyle Duron ATTENDING PHYSICIAN STATEMENT I saw and evaluated the patient. I reviewed the resident's note and discussed the case with the resident. I agree with the resident's findings and plan as documented. SUBJECTIVE: Patient seen and examined at bedside, admitted for SBO which is recurrent, endorses he is tolerating PO, passing flatus, VSS. OBJECTIVE: GA comfortable, AAox3, ambulatory, NGT+ HEENT NC/AT, EOMI Chest CTAB CVs s1, s2+, RRR Abd Soft, distended, NT, BS+ Ext No LE edema Vital Signs (72 hours) 10/23/19 10/23/19 10/23/19 00:18 05:56 09:00 Temperature 99.1 F 98.4 F Pulse Rate 112 H Pulse Rate [ 109 H Left] Respiratory 18 19 Rate Blood Pressure 118/88 Blood Pressure 120/69 [Arm] O2 Sat by Pulse 96 93 L 93 L Oximetry (%) 10/23/19 10/23/19 10/23/19 09:36 09:37 09:46 Temperature 98.3 F 98.3 F Pulse Rate 99 H 99 H Pulse Rate [ Left] Respiratory 20 20 Rate Blood Pressure 127/86 127/86 Blood Pressure [Arm] O2 Sat by Pulse 93 L 93 L 93 L Oximetry (%) 10/23/19 10/23/19 10/23/19 14:00 21:00 22:00 Temperature 98.3 F 98.1 F Pulse Rate 93 H 82 Pulse Rate [ Left] Respiratory 20 18 Rate Blood Pressure 129/76 130/77 Blood Pressure [Arm] O2 Sat by Pulse 95 97 97 Oximetry (%) 10/24/19 10/24/19 10/24/19 05:34 09:00 10:00 Temperature 98.7 F 98 F Pulse Rate 84 88 Pulse Rate [ Left] Respiratory 18 18 Rate Blood Pressure 141/79 140/91 Blood Pressure [Arm] O2 Sat by Pulse 97 96 96 Oximetry (%) 10/24/19 10/24/19 10/24/19 14:00 16:20 20:40 Temperature 98.3 F 97.9 F 99.5 F Pulse Rate 87 77 85 Pulse Rate [ Left] Respiratory 18 20 20 Rate Blood Pressure 137/83 138/89 138/82 Blood Pressure [Arm] O2 Sat by Pulse 98 96 Oximetry (%) 10/24/19 10/25/19 10/25/19 20:58 07:33 09:00 Temperature 98.1 F Pulse Rate 79 Pulse Rate [ Left] Respiratory 20 20 Rate Blood Pressure 134/54 L Blood Pressure [Arm] O2 Sat by Pulse 96 97 95 Oximetry (%) 10/25/19 14:30 Temperature 98.3 F Pulse Rate 84 Pulse Rate [ Left] Respiratory 20 Rate Blood Pressure 148/73 Blood Pressure [Arm] O2 Sat by Pulse 97 Oximetry (%) Microbiology 10/23/19 01:56 Urine - Urine Clean Catch Urine Culture - Final Enterococcus Faecalis 10/23/19 05:55 Blood - Peripheral Venous Blood Culture - Preliminary NO GROWTH OBTAINED AFTER 48 HOURS, INCUBATION TO CONTINUE FOR 3 DAYS. 10/23/19 06:00 Blood - Peripheral Venous Blood Culture - Preliminary NO GROWTH OBTAINED AFTER 48 HOURS, INCUBATION TO CONTINUE FOR 3 DAYS. Home Medications Medication Instructions Recorded Aspirin [Aspirin EC] 81 mg PO DAILY 05/22/19 Atorvastatin Calcium 10 mg PO DAILY 05/22/19 Cholecalciferol (Vitamin D3) 1,000 unit PO DAILY 05/22/19 [Vitamin D3 -] Metoprolol Tartrate 25 mg PO BID 05/22/19 Omeprazole 20 mg PO DAILY 05/22/19 Finasteride 5 mg PO DAILY 08/12/19 Amoxicillin/Potassium Clav 1 each PO BID #10 tablet 08/13/19 [Augmentin 875-125 Tablet] Docusate Sodium [Colace -] 100 mg PO BID PRN #60 cap 08/13/19 Current Medications Generic Name Dose Route Start Last Admin Trade Name Freq PRN Reason Stop Dose Admin Benzocaine/Menthol 1 each 10/23/19 16:01 10/24/19 02:26 Cepacol Lozenge - MM 1 each Q2H PRN Administration SORE THROAT Enoxaparin Sodium 40 mg 10/23/19 10:00 10/25/19 10:26 Lovenox - SQ 40 mg DAILY [facility] Administration Ceftriaxone Sodium 1 gm/ 50 mls @ 200 mls/hr 10/24/19 10:00 10/25/19 10:25 Dextrose IVPB 200 mls/hr DAILY [facility] Administration Protocol Potassium Chloride/Dextrose/Sod Cl 10 meq in 1,000 mls @ 83 mls/hr 10/23/19 10:30 08/31/20 21:46 D5-1/2ns+10 Meq Kcl - IV 83 mls/hr ASDIR [facility] Administration Ondansetron HCl 4 mg 10/23/19 05:30 Zofran Injection IVPUSH Q6H PRN NAUSEA Pantoprazole Sodium 40 mg 10/23/19 10:00 10/25/19 10:25 Protonix Iv IVPUSH 40 mg DAILY [facility] Administration ASSESSMENT AND PLAN: 63 M Acute SBO s/p multiple abdominal surgeries with adhesions Obesity T2DM UTI EMMETT Hypokalemia Plan: Cont. Ceftriaxone Enterococcus UTI, DC NGT and do trial of liquids, pt. endorses passing gas, and RN ?BM w/ liquid Correct electrolytes aggressively Surgery following ID following DVT ppx: Lovenox/Ambulation
--- NOTE | 2019-10-25 18:16 | PN ---
Physical Exam: SUBJECTIVE: Patient seen and examined. Pt. dneies any acute complaints. Tolerated liquids and passed gas and liquid stool. OBJECTIVE: Vital Signs Period Temp Pulse Resp BP Sys/Steward Pulse Ox Last 24 Hr 98.1 F-99.5 F 66-85 20-20 131-148/54-82 95-97 GENERAL: The patient is awake, alert, and in no acute distress. HEAD: Normal with no signs of trauma. EYES: Sclera anicteric, conjunctiva clear. ENT: Moist mucous membranes. LUNGS: Breath sounds equal anteriorly, clear to auscultation bilaterally, no wheezes, no crackles, no accessory muscle use. HEART: Regular rate and rhythm, S1, S2 without murmur ABDOMEN: Soft, nontender, nondistended but protuberant, obese, normoactive bowel sounds, no guarding, no rebound, multiple surgical scars present EXTREMITIES: 2+ dorsal pedal pulses, warm, no calf tenderness, well-perfused, no edema. NEUROLOGICAL: Normal speech, gait not observed. PSYCH: Normal mood, normal affect. SKIN: Warm, dry, Active Medications Generic Name Dose Route Start Last Admin Trade Name Freq PRN Reason Stop Dose Admin Benzocaine/Menthol 1 each 10/23/19 16:01 10/24/19 02:26 Cepacol Lozenge - MM 1 each Q2H PRN Administration SORE THROAT Enoxaparin Sodium 40 mg 10/23/19 10:00 10/25/19 10:26 Lovenox - SQ 40 mg DAILY [facility] Administration Ceftriaxone Sodium 1 gm/ 50 mls @ 200 mls/hr 10/24/19 10:00 10/25/19 10:25 Dextrose IVPB 200 mls/hr DAILY [facility] Administration Protocol Potassium Chloride/Dextrose/Sod Cl 10 meq in 1,000 mls @ 83 mls/hr 10/23/19 10:30 10/24/19 21:46 D5-1/2ns+10 Meq Kcl - IV 83 mls/hr ASDIR [facility] Administration Ondansetron HCl 4 mg 10/23/19 05:30 Zofran Injection IVPUSH Q6H PRN NAUSEA Pantoprazole Sodium 40 mg 10/23/19 10:00 10/25/19 10:25 Protonix Iv IVPUSH 40 mg DAILY [facility] Administration ASSESSMENT/PLAN: Pt. is a 64 y/o male with a significant past medical history of multiple SBOs (s/p multiple abdominal surgeries including 2 for TREVON), HTN, PE, Nephrol ithiasis, and recurrent UTIs presents to the ED with diffuse abdominal pain. Pt. admitted for SBO #Abdominal Pain 2/2 SBO Surgery consult appreciated NGT d/c c/w Protonix for GERD Zofran PRN for nausea Diet advanced to solid food #UTI c/w Ceftriaxone --> Will D/c with Bactrim for 5 days. UA + BCx. Neg. to date; UCx. growing Enterococcus #HTN Medications needed reconciliation #FEN D5-1/2 NS +10meq K monitor electrolytes and replete as needed Sodium controlled diet #DVT Ppx. Lovenox 40 #Dispo: D/C in AM Visit type - Emergency Visit Emergency Visit: Yes ED Registration Date: 10/23/19 Care time: The patient presented to the Emergency Department on the above date and was hospitalized for further evaluation of their emergent condition. - New Patient This patient is new to me today: No - Critical Care Critical Care patient: No - Discharge Referral Referred to [facility] Med P.C.: No ATTENDING PHYSICIAN STATEMENT I saw and evaluated the patient. I reviewed the resident's note and discussed the case with the resident. I agree with the resident's findings and plan as documented. SUBJECTIVE: OBJECTIVE: ASSESSMENT AND PLAN:
[2019-10-25] MEDS ORDERED: ZOLPIDEM TARTRATE 5 MG TABLET PO ONE (22:00)
[2019-10-26] MEDS ORDERED: SULFAMETHOXAZOLE/TRIMETHOPRIM 800MG/160MG D.S. TABLET PO ONE (07:59)
[2019-10-26] MEDS ORDERED: PANTOPRAZOLE 40 MG TABLET PO SCH (10:00)
[2019-10-26 12:25] VITALS: BP 148/79; PULSE 91; TEMP 98.5
--- NOTE | 2019-10-30 17:13 | DS ---
Physical Exam: SUBJECTIVE: Patient seen and examined. No acute events overnight. OBJECTIVE: PHYSICAL EXAM GENERAL: The patient is awake, alert, and in no acute distress. HEAD: Normal with no signs of trauma. EYES: Sclera anicteric, conjunctiva clear. ENT: Moist mucous membranes. LUNGS: Breath sounds equal anteriorly, clear to auscultation bilaterally, no wheezes, no crackles, no accessory muscle use. HEART: Regular rate and rhythm, S1, S2 without murmur ABDOMEN: Soft, nontender, nondistended but protuberant, obese, normoactive bowel sounds, no guarding, no rebound, multiple surgical scars present EXTREMITIES: 2+ dorsal pedal pulses, warm, no calf tenderness, well-perfused, no edema. NEUROLOGICAL: Normal speech, gait not observed. PSYCH: Normal mood, normal affect. SKIN: Warm, dry, LABS HOSPITAL COURSE: Date of Admission:10/23/19 Date of Discharge: 10/26/19 Pt. is a 64. y.o. M presenting with abdominal pain and constipation. UA was positive for infection. Abdominal X-ray showed partial SBO with distended bowel loops and renal stones bilaterally. Pt. was treated conservatively with bowel rest and NGT. Pt. was able to pass gas and tolerate clears. Pt. started on IV ceftriaxone for complicated UTI. Pt. seen by General Surgery. Hospital follow up and medication adjustments as detailed below. Minutes to complete discharge: 25 Discharge Summary Problems reviewed: Yes Reason For Visit: SMALL BOWEL OBSTRUCTION Condition: Improved - Instructions Diet, Activity, Other Instructions: You came in with abdominal pain and constipation. We imaged your abdomen and we noticed that you had a small bowel obstruction. We tested your blood and urine and we saw that you had an infection. we treated your obstruction with bowel rest and an NG tube. We began treatment of your UTI with IV antibiotics. you were evaluated by a general surgeon. Please take Bactrim DS tablet EVERY 12 hours for 5 days Please continue your home medications as they were prescribed. Please follow up with your PCP within 1 week. Please return to the ED if you are having fever, chills, worsening abdominal pain or any concerning symptoms. Referrals: Tatyana Prado [Primary Care Provider] - Disposition: HOME - Home Medications Comprehensive Discharge Medication List: Ambulatory Orders Aspirin [Aspirin EC] 81 mg PO DAILY 05/22/19 Atorvastatin Calcium 10 mg PO DAILY 05/22/19 Cholecalciferol (Vitamin D3) [Vitamin D3 -] 1,000 unit PO DAILY 05/22/19 Metoprolol Tartrate 25 mg PO BID 05/22/19 Omeprazole 20 mg PO DAILY 05/22/19 Finasteride 5 mg PO DAILY 08/12/19 Amoxicillin/Potassium Clav [Augmentin 875-125 Tablet] 1 each PO BID #10 tablet 08/13/19 Docusate Sodium [Colace -] 100 mg PO BID PRN #60 cap 08/13/19 Sulfamethoxazole/Trimethoprim [Bactrim Ds -] 1 tab PO BID #10 tablet 10/26/19 This patient is new to me today: No Emergency Visit: Yes ED Registration Date: 10/23/19 Care time: The patient presented to the Emergency Department on the above date and was hospitalized for further evaluation of their emergent condition. Critical Care patient: No - Discharge Referral Referred to [facility] Med P.C.: No ATTENDING PHYSICIAN STATEMENT I saw and evaluated the patient. I reviewed the resident's note and discussed the case with the resident. I agree with the resident's findings and plan as documented. SUBJECTIVE: OBJECTIVE: ASSESSMENT AND PLAN:
== END 2019-10-26 11:07 | disposition home or self-care (01) | DRG 389 ==
LOC: JER 00:02 → JERBED 05:46 → J8W 08:34
PROVIDERS: ADMIT Internal Medicine; ATTEND Internal Medicine
PROC: 0D9670Z Drainage of Stomach with Drainage Device, Via Natural or Artificial Opening (ICD-10-PCS; principal; 2019-10-23)
DX: K56.609 Unspecified intestinal obstruction, unspecified as to partial versus complete obstruction (principal); N39.0 Urinary tract infection, site not specified; I10 Essential (primary) hypertension; N40.0 Benign prostatic hyperplasia without lower urinary tract symptoms; M54.5 Low back pain; E78.5 Hyperlipidemia, unspecified; K21.9 Gastro-esophageal reflux disease without esophagitis; E11.9 Type 2 diabetes mellitus without complications; M81.0 Age-related osteoporosis without current pathological fracture; G47.33 Obstructive sleep apnea (adult) (pediatric); E87.6 Hypokalemia; B95.2 Enterococcus as the cause of diseases classified elsewhere; E66.9 Obesity, unspecified; Z68.33 Body mass index [BMI] 33.0-33.9, adult; Z86.711 Personal history of pulmonary embolism; Z11.59 Encounter for screening for other viral diseases; Z87.442 Personal history of urinary calculi
CPT/HCPCS: 36415; 71045-TC-FY; 74019-TC-FY; 80048; 80053; 81003; 83605; 83690; 85025; 87040; 87086; 87186; 93005; 93010; 99285-25; J0131; U0003

== ENCOUNTER 2020-04-25 04:55 | Inpatient (IN) | payer OTHER ==
[2020-04-25 05:05] VITALS: BMI 33.2
[2020-04-25] MEDS ORDERED: SODIUM CHLORIDE 0.9% 500 ML INFUS.BAG IV ONE (05:07)
[2020-04-25] MEDS ORDERED: morphine CARPU-JECT 2 MG/1 ML DISP.SYRIN SQ ONE (05:08)
[2020-04-25] MEDS ORDERED: ONDANSETRON 4 MG/2 ML VIAL IVPUSH ONE (05:09)
[2020-04-25] MEDS ORDERED: morphine SULFATE 4 MG/ML VIAL ONE (05:13)
[2020-04-25] MEDS ORDERED: ONDANSETRON 4 MG/2 ML VIAL ONE (05:14)
[2020-04-25 05:50] LABS: BASO % 0.5 % (0-2.0); EOS % 0.9 % (0-4.5); HEMOGLOBIN 14.4 GM/dL (11.7-16.9); LYMPH % 7.3 % (8-40); MCH 26.5 pg (25.7-33.7); MCHC 34.3 g/dl (32.0-35.9); MEAN CELL VOLUME 77.4 fl (80-96); MEAN PLT VOLUME 7.9 fl (7.5-11.1); NEUT % 82.3 % (42.8-82.8); PLATELET COUNT 246 K/MM3 (134-434); RBC 5.43 M/mm3 (4.00-5.60); RDW 15.6 % (11.9-15.9); WHITE BLOOD COUNT 9.8 K/mm3 (4.0-10.0)
[2020-04-25 05:51] LABS: INR 1.06 (0.83-1.09)
[2020-04-25 05:54] LABS: ACTIVATED PTT 28.7 SECONDS (25.2-36.5)
[2020-04-25 06:14] LABS: CHLORIDE 107 mmol/L (98-107); POTASSIUM 3.9 mmol/L (3.5-5.1); SODIUM 141 mmol/L (136-145)
[2020-04-25 06:16] LABS: ALBUMIN 3.5 g/dl (3.4-5.0); ANION GAP 5 MMOL/L (8-16); BLOOD UREA NITROGEN 19.9 mg/dL (7-18); CALCIUM 8.6 mg/dL (8.5-10.1); CO2 29 mmol/L (21-32)
[2020-04-25 06:17] LABS: GLUCOSE,RANDOM 126 mg/dL (74-106)
[2020-04-25 06:19] LABS: SGPT/ALT 32 U/L (13-61)
[2020-04-25 06:20] LABS: CREATININE 1.3 mg/dL (0.55-1.3); SGOT/AST 15 U/L (15-37)
[2020-04-25 06:21] LABS: BILIRUBIN,TOTAL 1.3 mg/dL (0.2-1); TOT PROT 7.4 g/dl (6.4-8.2)
[2020-04-25 06:22] LABS: ALK PHOS 114 U/L (45-117)
[2020-04-25] MEDS ORDERED: SODIUM CHLORIDE 1,000 ML IV SCH (06:45)
[2020-04-25] MEDS ORDERED: LACTATED RINGERS SOLUTION 1,000 ML/1,000 ML INFUS.BAG IV SCH (08:45)
[2020-04-25] MEDS ORDERED: METOPROLOL TARTRATE 5 MG/5 ML VIAL IVPUSH PRN (08:56)
[2020-04-25] MEDS: DEXTROSE 5%-LACTATED RINGERS 1,000 ML IV SCH (11:25)
[2020-04-25] MEDS ORDERED: METOPROLOL TARTRATE 5 MG/5 ML VIAL ONE (11:36)
[2020-04-25] MEDS ORDERED: ENOXAPARIN NA (PORCINE) 40 MG/0.4 ML DISP.SYRIN SQ ONE (11:36)
[2020-04-25] MEDS: ENOXAPARIN NA (PORCINE) 40 MG/0.4 ML DISP.SYRIN SQ SCH (12:53)
[2020-04-25] MEDS ORDERED: ACETAMINOPHEN 1000 MG/100 ML VIAL (NON FORMULARY) IVPB PRN (22:26)
[2020-04-25] MEDS ORDERED: BENZOCAINE 20% UNIT DOSE SPRAY MM PRN (23:11)
[2020-04-26] MEDS: TETRACAINE/BENZOCAINE/BUTAMBEN 20 GM SPR TP PRN (06:58)
[2020-04-26] MEDS ORDERED: ENOXAPARIN NA (PORCINE) 40 MG/0.4 ML DISP.SYRIN SQ SCH (10:00)
[2020-04-26] MEDS: DEXTROSE 5%-LACTATED RINGERS 1,000 ML IV SCH ×2 (10:10→17:21)
[2020-04-26] MEDS: ENOXAPARIN NA (PORCINE) 40 MG/0.4 ML DISP.SYRIN SQ SCH (10:10)
[2020-04-26 11:19] LABS: BASO % 0.5 % (0-2.0); HEMOGLOBIN 13.4 GM/dL (11.7-16.9); MCH 26.7 pg (25.7-33.7); MCHC 33.6 g/dl (32.0-35.9); MEAN CELL VOLUME 79.5 fl (80-96); MEAN PLT VOLUME 8.5 fl (7.5-11.1); MONO % 16.2 % (3.8-10.2); NEUT % 64.3 % (42.8-82.8); PLATELET COUNT 150 K/MM3 (134-434); RBC 5.03 M/mm3 (4.00-5.60); RDW 15.6 % (11.9-15.9)
[2020-04-26 11:51] LABS: POTASSIUM 3.5 mmol/L (3.5-5.1); WHITE BLOOD COUNT 5.6 K/mm3 (4.0-10.0)
[2020-04-26 11:53] LABS: CALCIUM 8.4 mg/dL (8.5-10.1)
[2020-04-26 11:54] LABS: ALBUMIN 3.2 g/dl (3.4-5.0); BLOOD UREA NITROGEN 16.2 mg/dL (7-18); MAGNESIUM 2.1 mg/dL (1.8-2.4)
[2020-04-26 11:57] LABS: CREATININE 1.1 mg/dL (0.55-1.3); PHOSPHOROUS 2.1 mg/dL (2.5-4.9)
[2020-04-26 11:59] LABS: BILIRUBIN,TOTAL 1.5 mg/dL (0.2-1)
[2020-04-26] MEDS ORDERED: POTASSIUM PHOSPHATE IVPB SCH (13:48)
[2020-04-26] MEDS ORDERED: LACTATED RINGERS IVPB SCH (13:48)
[2020-04-26] MEDS ORDERED: DEXTROSE 5% IVPB SCH (13:48)
[2020-04-26] MEDS ORDERED: DEXTROSE 5%-LACTATED RINGERS 1,000 ML IV SCH (14:30)
[2020-04-26] MEDS ORDERED: KCL 10 MEQ IVPB 10 MEQ/100 ML INFUS.BAG IVPB SCH (17:00)
[2020-04-26] MEDS ORDERED: TETRACAINE/BENZOCAINE/BUTAMBEN 20 GM SPR TP ONE (22:32)
[2020-04-27] MEDS: TETRACAINE/BENZOCAINE/BUTAMBEN 20 GM SPR TP PRN
[2020-04-27] MEDS: DEXTROSE 5%-LACTATED RINGERS 1,000 ML IV SCH (04:00)
[2020-04-27] MEDS: PANTOPRAZOLE SODIUM 40 MG VIAL IVPUSH SCH (09:24)
[2020-04-27] MEDS: ENOXAPARIN NA (PORCINE) 40 MG/0.4 ML DISP.SYRIN SQ SCH (09:25)
[2020-04-27 10:25] LABS: BASO % 0.3 % (0-2.0); EOS % 3.9 % (0-4.5); HEMATOCRIT 38.5 % (35.4-49); LYMPH % 12.3 % (8-40); MCH 26.6 pg (25.7-33.7); MCHC 33.8 g/dl (32.0-35.9); MEAN CELL VOLUME 78.6 fl (80-96); MONO % 10.6 % (3.8-10.2); NEUT % 72.9 % (42.8-82.8); PLATELET COUNT 172 K/MM3 (134-434); RDW 15.1 % (11.9-15.9); WHITE BLOOD COUNT 5.6 K/mm3 (4.0-10.0)
[2020-04-27 10:46] LABS: POTASSIUM 3.1 mmol/L (3.5-5.1)
[2020-04-27 10:47] LABS: CALCIUM 8.4 mg/dL (8.5-10.1)
[2020-04-27 10:48] LABS: BLOOD UREA NITROGEN 13.1 mg/dL (7-18)
[2020-04-27 10:51] LABS: PHOSPHOROUS 2.2 mg/dL (2.5-4.9)
[2020-04-27] MEDS: KCL 10 MEQ IVPB 10 MEQ/100 ML INFUS.BAG IVPB SCH ×3 (11:24→13:42)
[2020-04-27] MEDS ORDERED: ACETAMINOPHEN 1000 MG/100 ML VIAL (NON FORMULARY) IVPB ONE (20:54)
[2020-04-27 21:56] LABS: POTASSIUM 3.2 mmol/L (3.5-5.1)
[2020-04-27 21:58] LABS: CALCIUM 8.2 mg/dL (8.5-10.1)
[2020-04-27 22:02] LABS: CREATININE 1.1 mg/dL (0.55-1.3)
[2020-04-27 22:03] LABS: BILIRUBIN,TOTAL 1.2 mg/dL (0.2-1)
[2020-04-27 22:04] LABS: TOT PROT 6.6 g/dl (6.4-8.2)
[2020-04-28] MEDS: DEXTROSE 5%-LACTATED RINGERS 1,000 ML IV SCH (04:46)
[2020-04-28] MEDS ORDERED: TETRACAINE/BENZOCAINE/BUTAMBEN 20 GM SPR TP ONE (05:26)
[2020-04-28] MEDS ORDERED: ACETAMINOPHEN 1000 MG/100 ML VIAL (NON FORMULARY) IVPB PRN (08:04)
[2020-04-28 08:42] LABS: EOS % 4.4 % (0-4.5); HEMATOCRIT 41.2 % (35.4-49); HEMOGLOBIN 13.8 GM/dL (11.7-16.9); LYMPH % 13.6 % (8-40); MCH 26.4 pg (25.7-33.7); MCHC 33.5 g/dl (32.0-35.9); MEAN PLT VOLUME 8.3 fl (7.5-11.1); MONO % 9.6 % (3.8-10.2); NEUT % 71.4 % (42.8-82.8); PLATELET COUNT 193 K/MM3 (134-434); RBC 5.21 M/mm3 (4.00-5.60); RDW 15.3 % (11.9-15.9); WHITE BLOOD COUNT 7.3 K/mm3 (4.0-10.0)
[2020-04-28 09:02] LABS: POTASSIUM 4.3 mmol/L (3.5-5.1)
[2020-04-28 09:04] LABS: BLOOD UREA NITROGEN 11.4 mg/dL (7-18); CALCIUM 8.5 mg/dL (8.5-10.1)
[2020-04-28 09:05] LABS: ALBUMIN 3.2 g/dl (3.4-5.0); MAGNESIUM 2.1 mg/dL (1.8-2.4)
[2020-04-28 09:08] LABS: CREATININE 1.2 mg/dL (0.55-1.3)
[2020-04-28 09:14] LABS: BILIRUBIN,TOTAL 2.2 mg/dL (0.2-1); PHOSPHOROUS 2.6 mg/dL (2.5-4.9); TOT PROT 7.5 g/dl (6.4-8.2)
[2020-04-28] MEDS: KCL 10 MEQ IVPB 10 MEQ/100 ML INFUS.BAG IVPB SCH ×2 (10:00→13:27)
[2020-04-28] MEDS: ENOXAPARIN NA (PORCINE) 40 MG/0.4 ML DISP.SYRIN SQ SCH (11:09)
[2020-04-28] MEDS: PANTOPRAZOLE SODIUM 40 MG VIAL IVPUSH SCH (11:09)
[2020-04-29] MEDS: PANTOPRAZOLE 40 MG TABLET PO SCH (09:28)
[2020-04-29] MEDS: ENOXAPARIN NA (PORCINE) 40 MG/0.4 ML DISP.SYRIN SQ SCH (09:28)
[2020-04-29 10:54] LABS: BASO % 1.3 % (0-2.0); EOS % 5.8 % (0-4.5); HEMATOCRIT 39.5 % (35.4-49); HEMOGLOBIN 13.3 GM/dL (11.7-16.9); LYMPH % 15.6 % (8-40); MCH 26.3 pg (25.7-33.7); MCHC 33.7 g/dl (32.0-35.9); MEAN PLT VOLUME 7.9 fl (7.5-11.1); MONO % 10.2 % (3.8-10.2); NEUT % 67.1 % (42.8-82.8); PLATELET COUNT 196 K/MM3 (134-434); RBC 5.07 M/mm3 (4.00-5.60); RDW 15.3 % (11.9-15.9); WHITE BLOOD COUNT 5.5 K/mm3 (4.0-10.0)
[2020-04-29 11:21] LABS: POTASSIUM 3.2 mmol/L (3.5-5.1)
[2020-04-29 11:25] LABS: ALBUMIN 3.2 g/dl (3.4-5.0); BLOOD UREA NITROGEN 11.4 mg/dL (7-18); CALCIUM 8.7 mg/dL (8.5-10.1)
[2020-04-29 11:28] LABS: CREATININE 1.1 mg/dL (0.55-1.3)
[2020-04-29 11:29] LABS: PHOSPHOROUS 2.9 mg/dL (2.5-4.9)
[2020-04-29 11:30] LABS: BILIRUBIN,TOTAL 1.8 mg/dL (0.2-1)
[2020-04-29] MEDS ORDERED: POTASSIUM CHLORIDE TABS 20 MEQ TABLET.ER (FP) PO ONE ×2 (13:00→19:30)
[2020-04-30 05:30] VITALS: BP 111/56; PULSE 77; TEMP 97.9
[2020-04-30 10:13] LABS: BASO % 0.9 % (0-2.0); EOS % 4.9 % (0-4.5); HEMATOCRIT 41.6 % (35.4-49); HEMOGLOBIN 14.2 GM/dL (11.7-16.9); LYMPH % 13.3 % (8-40); MCH 26.5 pg (25.7-33.7); MCHC 34.1 g/dl (32.0-35.9); MEAN CELL VOLUME 77.8 fl (80-96); MONO % 10.5 % (3.8-10.2); NEUT % 70.4 % (42.8-82.8); PLATELET COUNT 218 K/MM3 (134-434); RBC 5.35 M/mm3 (4.00-5.60); RDW 14.9 % (11.9-15.9); WHITE BLOOD COUNT 6.7 K/mm3 (4.0-10.0)
[2020-04-30] MEDS: ENOXAPARIN NA (PORCINE) 40 MG/0.4 ML DISP.SYRIN SQ SCH (10:30)
[2020-04-30] MEDS: PANTOPRAZOLE 40 MG TABLET PO SCH (10:30)
[2020-04-30 10:36] LABS: POTASSIUM 3.5 mmol/L (3.5-5.1)
[2020-04-30 10:46] LABS: ALBUMIN 3.4 g/dl (3.4-5.0); BLOOD UREA NITROGEN 16.6 mg/dL (7-18)
[2020-04-30 10:47] LABS: MAGNESIUM 2.2 mg/dL (1.8-2.4)
[2020-04-30 10:50] LABS: CREATININE 1.3 mg/dL (0.55-1.3); PHOSPHOROUS 2.7 mg/dL (2.5-4.9)
[2020-04-30 10:51] LABS: BILIRUBIN,TOTAL 1.2 mg/dL (0.2-1); TOT PROT 7.6 g/dl (6.4-8.2)
[2020-04-30 10:55] LABS: CALCIUM 8.5 mg/dL (8.5-10.1)
[2020-04-30] MEDS ORDERED: DOCUSATE SODIUM 100 MG CAPSULE (FP) PO PRN (11:31)
[2020-04-30] MEDS ORDERED: SENNOSIDES 8.6MG TABLET (FP) PO SCH (11:45)
== END 2020-04-30 17:22 | disposition home or self-care (01) | DRG 389 ==
LOC: JER 04:55 → JERBED 07:55 → J6S 20:54
PROVIDERS: ADMIT Internal Medicine; ATTEND Student in an Organized Health Care Education/Training Program
PROC: 0D9670Z Drainage of Stomach with Drainage Device, Via Natural or Artificial Opening (ICD-10-PCS; principal; 2020-04-25)
DX: K56.609 Unspecified intestinal obstruction, unspecified as to partial versus complete obstruction (principal); N17.9 Acute kidney failure, unspecified; E87.2 Acidosis; I10 Essential (primary) hypertension; E78.5 Hyperlipidemia, unspecified; N20.0 Calculus of kidney; D18.09 Hemangioma of other sites; R16.1 Splenomegaly, not elsewhere classified; K76.0 Fatty (change of) liver, not elsewhere classified
CPT/HCPCS: 36415; 71045-TC-FY; 74019-TC-FY; 74177-TC; 80048; 80053; 83605; 83735; 84100; 84484; 85025; 85610; 85730; 86850; 86900; 86901; 93005; 93010; 99285-25; C9803; J0131; U0003

== ENCOUNTER 2020-10-24 13:31 | Inpatient (IN) | payer OTHER ==
[2020-10-24] MEDS ORDERED: ONDANSETRON 4 MG/2 ML VIAL IVPUSH ONE (16:08)
[2020-10-24] MEDS ORDERED: ACETAMINOPHEN 1000 MG/100 ML VIAL (NON FORMULARY) IVPB ONE (16:08)
[2020-10-24] MEDS ORDERED: SODIUM CHLORIDE 0.9% 500 ML INFUS.BAG IV ONE ×2 (16:08→19:23)
[2020-10-24] MEDS ORDERED: ACETAMINOPHEN INJECTION 100 ML IVPB ONE (16:17)
[2020-10-24] MEDS ORDERED: ONDANSETRON 4 MG/2 ML VIAL ONE (16:17)
[2020-10-24 17:35] LABS: INR 1.05 (0.83-1.09); PROTHROMBIN TIME (PATIENT) 12.7 SEC (9.7-13.0)
[2020-10-24 17:38] LABS: ACTIVATED PTT 18.4 SECONDS (25.2-36.5)
[2020-10-24 17:47] LABS: CHLORIDE 102 mmol/L (98-107); SODIUM 138 mmol/L (136-145)
[2020-10-24 17:50] LABS: ALBUMIN 3.5 g/dl (3.4-5.0); ANION GAP 8 MMOL/L (8-16); BLOOD UREA NITROGEN 20.3 mg/dL (7-18); CALCIUM 8.7 mg/dL (8.5-10.1); CO2 28 mmol/L (21-32); GLUCOSE,RANDOM 120 mg/dL (74-106); MAGNESIUM 1.8 mg/dL (1.8-2.4)
[2020-10-24 17:51] LABS: LIPASE 52 U/L (73-393)
[2020-10-24 17:53] LABS: CREATININE 1.3 mg/dL (0.55-1.3); SGOT/AST 39 U/L (15-37); SGPT/ALT 30 U/L (13-61)
[2020-10-24 17:55] LABS: BILIRUBIN,TOTAL 2.1 mg/dL (0.2-1); TOT PROT 7.7 g/dl (6.4-8.2)
[2020-10-24 17:56] LABS: ALK PHOS 101 U/L (45-117)
[2020-10-24 18:38] LABS: BASO % 0.3 % (0-2.0); EOS % 0.1 % (0-4.5); HEMATOCRIT 39.3 % (35.4-49); HEMOGLOBIN 13.3 GM/dL (11.7-16.9); LYMPH % 5.9 % (8-40); MCH 25.7 pg (25.7-33.7); MCHC 33.9 g/dl (32.0-35.9); MEAN CELL VOLUME 75.7 fl (80-96); MEAN PLT VOLUME 7.8 fl (7.5-11.1); MONO % 5.9 % (3.8-10.2); NEUT % 87.8 % (42.8-82.8); PLATELET COUNT 224 10^3/uL (134-434); RBC 5.19 M/mm3 (4.00-5.60); RDW 15.2 % (11.9-15.9); WHITE BLOOD COUNT 8.4 K/mm3 (4.0-10.0)
[2020-10-24] MEDS ORDERED: ACETAMINOPHEN 1000 MG/100 ML VIAL (NON FORMULARY) IVPB PRN (23:58)
[2020-10-25] MEDS ORDERED: hydrALAZINE HCL 20 MG/ML VIAL IVPUSH PRN (00:08)
[2020-10-25] MEDS ORDERED: ACETAMINOPHEN INJECTION 100 ML IVPB ONE (01:35)
[2020-10-25] MEDS: SODIUM CHLORIDE 1,000 ML IV SCH (01:42)
[2020-10-25 04:39] VITALS: BMI 28.6
[2020-10-25 05:03] LABS: URINE APPEARANCE CLEAR; URINE BILIRUBIN NEGATIVE (NEGATIVE); URINE COLOR YELLOW; URINE GLUCOSE (UA) NEGATIVE (NEGATIVE); URINE KETONE NEGATIVE (NEGATIVE); URINE LEUK ESTERASE NEGATIVE (NEGATIVE); URINE NITRITE NEGATIVE (NEGATIVE); URINE PROTEIN TRACE (NEGATIVE); URINE UROBILINOGEN 0.2 mg/dL (0.2-1.0)
[2020-10-25] MEDS ORDERED: INSULIN SLIDING SCALE (NOVOLOG) 1 VIAL SQ SCH (07:00)
[2020-10-25] MEDS ORDERED: MORPHINE SULFATE 2 MG/ML VIAL IVPUSH ONE (08:11)
[2020-10-25] MEDS: ENOXAPARIN NA (PORCINE) 40 MG/0.4 ML DISP.SYRIN SQ SCH (09:20)
[2020-10-25 09:48] LABS: ALBUMIN 2.8 g/dl (3.4-5.0); BLOOD UREA NITROGEN 16.6 mg/dL (7-18)
[2020-10-25 09:49] LABS: MAGNESIUM 1.7 mg/dL (1.8-2.4)
[2020-10-25 09:50] LABS: CALCIUM 7.6 mg/dL (8.5-10.1)
[2020-10-25 09:52] LABS: PHOSPHOROUS 2.4 mg/dL (2.5-4.9)
[2020-10-25 09:53] LABS: BILIRUBIN,TOTAL 1.5 mg/dL (0.2-1)
[2020-10-25 10:15] LABS: TOT PROT 6.6 g/dl (6.4-8.2)
[2020-10-25] MEDS ORDERED: POTASSIUM PHOSPHATE 15 MM in DEXTROSE 5%-WATER - 500 ML IVPB ONE (10:29)
[2020-10-25] MEDS ORDERED: PROCHLORPERAZINE INJECTION 10 MG/2 ML VIAL IVPB PRN (10:39)
[2020-10-25] MEDS ORDERED: MAGNESIUM 1GM/D5W 100ML - 100 ML IVPB IVPB ONE (10:45)
[2020-10-25 12:08] LABS: HEMATOCRIT 36.3 % (35.4-49); HEMOGLOBIN 12.4 GM/dL (11.7-16.9); MCH 26.2 pg (25.7-33.7); MCHC 34.3 g/dl (32.0-35.9); MEAN CELL VOLUME 76.5 fl (80-96); MEAN PLT VOLUME 7.9 fl (7.5-11.1); PLATELET COUNT 191 10^3/uL (134-434); RBC 4.74 M/mm3 (4.00-5.60); RDW 15.3 % (11.9-15.9); WHITE BLOOD COUNT 5.9 K/mm3 (4.0-10.0)
[2020-10-25] MEDS ORDERED: PT OWN MED DRAWER 7, Y5N ONE (14:12)
[2020-10-25] MEDS ORDERED: MORPHINE SULFATE 2 MG/ML VIAL IVPUSH PRN (15:30)
[2020-10-25] MEDS ORDERED: ACETAMINOPHEN 1000 MG/100 ML VIAL (NON FORMULARY) IVPB PRN (15:32)
[2020-10-25] MEDS: BENZOCAINE/MENTH/CETYLPYRD CL 1 EACH LOZENGE MM PRN (20:16)
[2020-10-26] MEDS: SODIUM CHLORIDE 1,000 ML IV SCH ×2 (02:03→02:09)
[2020-10-26] MEDS: BENZOCAINE/MENTH/CETYLPYRD CL 1 EACH LOZENGE MM PRN (10:32)
[2020-10-26] MEDS: ENOXAPARIN NA (PORCINE) 40 MG/0.4 ML DISP.SYRIN SQ SCH (10:32)
[2020-10-26 11:34] LABS: HEMOGLOBIN 12.7 GM/dL (11.7-16.9); MCH 26.5 pg (25.7-33.7); MCHC 34.2 g/dl (32.0-35.9); MEAN CELL VOLUME 77.4 fl (80-96); MEAN PLT VOLUME 7.7 fl (7.5-11.1); PLATELET COUNT 176 10^3/uL (134-434); RBC 4.78 M/mm3 (4.00-5.60); RDW 14.9 % (11.9-15.9); WHITE BLOOD COUNT 7.4 K/mm3 (4.0-10.0)
[2020-10-26 11:58] LABS: CALCIUM 7.9 mg/dL (8.5-10.1)
[2020-10-26 11:59] LABS: MAGNESIUM 1.9 mg/dL (1.8-2.4)
[2020-10-26 12:02] LABS: PHOSPHOROUS 2.7 mg/dL (2.5-4.9)
[2020-10-26 12:03] LABS: BILIRUBIN,TOTAL 1.4 mg/dL (0.2-1); TOT PROT 6.6 g/dl (6.4-8.2)
[2020-10-26] MEDS: PANTOPRAZOLE 40 MG TABLET PO SCH (18:02)
[2020-10-26] MEDS: METOPROLOL TARTRATE 25 MG TABLET (FP) PO SCH (21:49)
[2020-10-26] MEDS: ATORVASTATIN CA 10 MG TABLET (FP) PO SCH (21:49)
[2020-10-26] MEDS ORDERED: MELATONIN 5 MG TABLETS PO PRN (21:59)
[2020-10-27] MEDS: SODIUM CHLORIDE 1,000 ML IV SCH ×3 (00:42→21:56)
[2020-10-27 08:06] LABS: HEMATOCRIT 35.2 % (35.4-49); HEMOGLOBIN 12.2 GM/dL (11.7-16.9); MCH 26.6 pg (25.7-33.7); MCHC 34.7 g/dl (32.0-35.9); MEAN CELL VOLUME 76.6 fl (80-96); MEAN PLT VOLUME 7.7 fl (7.5-11.1); PLATELET COUNT 175 10^3/uL (134-434); RBC 4.59 M/mm3 (4.00-5.60); RDW 14.5 % (11.9-15.9)
[2020-10-27 08:29] LABS: BLOOD UREA NITROGEN 9.1 mg/dL (7-18); CALCIUM 7.7 mg/dL (8.5-10.1)
[2020-10-27] MEDS: PANTOPRAZOLE 40 MG TABLET PO SCH (09:40)
[2020-10-27] MEDS: METOPROLOL TARTRATE 25 MG TABLET (FP) PO SCH ×2 (09:40→21:45)
[2020-10-27] MEDS: ENOXAPARIN NA (PORCINE) 40 MG/0.4 ML DISP.SYRIN SQ SCH (09:40)
[2020-10-27] MEDS: FINASTERIDE 5 MG TABLET (FP) PO SCH (09:40)
[2020-10-27] MEDS ORDERED: PT OWN MED DRAWER 7, Y5N ONE (16:29)
[2020-10-27] MEDS ORDERED: ACETAMINOPHEN 500 MG TABLET (FP) PO PRN ×2 (20:58)
[2020-10-27] MEDS: ATORVASTATIN CA 10 MG TABLET (FP) PO SCH (21:45)
[2020-10-28] MEDS ORDERED: POTASSIUM CHLORIDE TABS 20 MEQ TABLET.ER (FP) PO ONE (07:36)
[2020-10-28 08:04] LABS: HEMATOCRIT 36.2 % (35.4-49); HEMOGLOBIN 12.6 GM/dL (11.7-16.9); MCH 26.5 pg (25.7-33.7); MCHC 34.7 g/dl (32.0-35.9); MEAN CELL VOLUME 76.4 fl (80-96); MEAN PLT VOLUME 7.6 fl (7.5-11.1); PLATELET COUNT 194 10^3/uL (134-434); RBC 4.74 M/mm3 (4.00-5.60); WHITE BLOOD COUNT 5.3 K/mm3 (4.0-10.0)
[2020-10-28 08:28] LABS: BLOOD UREA NITROGEN 8.5 mg/dL (7-18)
[2020-10-28 08:30] LABS: CALCIUM 7.9 mg/dL (8.5-10.1)
[2020-10-28] MEDS: SODIUM CHLORIDE 1,000 ML IV SCH ×2 (09:06→09:09)
[2020-10-28] MEDS: ENOXAPARIN NA (PORCINE) 40 MG/0.4 ML DISP.SYRIN SQ SCH (09:09)
[2020-10-28] MEDS: METOPROLOL TARTRATE 25 MG TABLET (FP) PO SCH (09:09)
[2020-10-28] MEDS: FINASTERIDE 5 MG TABLET (FP) PO SCH (09:09)
[2020-10-28] MEDS: PANTOPRAZOLE 40 MG TABLET PO SCH (09:09)
[2020-10-28 15:52] VITALS: BP 154/97; PULSE 82; TEMP 98
== END 2020-10-28 18:51 | disposition home or self-care (01) | DRG 389 ==
LOC: JER 13:31 → JERBED 20:38 → J8W 10-25 03:50
PROVIDERS: ADMIT Internal Medicine; ATTEND Internal Medicine
DX: K56.609 Unspecified intestinal obstruction, unspecified as to partial versus complete obstruction (principal); E87.2 Acidosis; I10 Essential (primary) hypertension; Z86.711 Personal history of pulmonary embolism; E66.9 Obesity, unspecified; Z68.28 Body mass index [BMI] 28.0-28.9, adult; R94.31 Abnormal electrocardiogram [ECG] [EKG]; M81.0 Age-related osteoporosis without current pathological fracture; N40.0 Benign prostatic hyperplasia without lower urinary tract symptoms; R73.03 Prediabetes; K76.0 Fatty (change of) liver, not elsewhere classified
CPT/HCPCS: 36415; 71046-TC-FY; 74019-TC-FY; 74177-TC; 80048; 80053; 81003; 82550; 82553; 82962; 83036; 83605; 83690; 83735; 84100; 84484; 85025; 85027; 85610; 85730; 86850; 86900; 86901; 87086; 93005; 93010; 93971-TC; 99285-25; C9803; J0131; Q9967; U0003; U0005

== ENCOUNTER 2021-02-24 21:52 | Inpatient (IN) | payer OTHER ==
[2021-02-24] MEDS ORDERED: ONDANSETRON 4 MG/2 ML VIAL IVPUSH ONE (22:23)
[2021-02-24] MEDS ORDERED: ONDANSETRON 4 MG/2 ML VIAL ONE (22:27)
[2021-02-24] MEDS ORDERED: LACTATED RINGERS SOLUTION 1,000 ML/1,000 ML INFUS.BAG IV SCH (22:30)
[2021-02-24 23:35] LABS: BASO % 0.6 % (0-2.0); EOS % 0.9 % (0-4.5); HEMATOCRIT 42.3 % (35.4-49); HEMOGLOBIN 13.7 GM/dL (11.7-16.9); LYMPH % 3.8 % (8-40); MCH 24.9 pg (25.7-33.7); MCHC 32.3 g/dl (32.0-35.9); MEAN CELL VOLUME 76.9 fl (80-96); MEAN PLT VOLUME 7.9 fl (7.5-11.1); MONO % 5.6 % (3.8-10.2); NEUT % 89.1 % (42.8-82.8); PLATELET COUNT 252 10^3/uL (134-434); RDW 14.4 % (11.9-15.9); WHITE BLOOD COUNT 11.6 K/mm3 (4.0-10.0)
[2021-02-24 23:48] LABS: INR 1.11 (0.83-1.09); PROTHROMBIN TIME (PATIENT) 12.4 SEC (9.7-13.0)
[2021-02-24 23:51] LABS: ACTIVATED PTT 24.5 SECONDS (25.2-36.5)
[2021-02-25 00:01] LABS: CHLORIDE 102 mmol/L (98-107); SODIUM 136 mmol/L (136-145)
[2021-02-25 00:03] LABS: BLOOD UREA NITROGEN 23.2 mg/dL (7-18)
[2021-02-25 00:04] LABS: ALBUMIN 3.1 g/dl (3.4-5.0); ANION GAP 9 MMOL/L (8-16); CALCIUM 8.4 mg/dL (8.5-10.1); CO2 25 mmol/L (21-32); GLUCOSE,RANDOM 146 mg/dL (74-106); LIPASE 89 U/L (73-393); MAGNESIUM 1.9 mg/dL (1.8-2.4)
[2021-02-25 00:07] LABS: CREATININE 1.4 mg/dL (0.55-1.3); SGOT/AST 34 U/L (15-37); SGPT/ALT 30 U/L (13-61)
[2021-02-25 00:09] LABS: BILIRUBIN,TOTAL 1.4 mg/dL (0.2-1); TOT PROT 7.6 g/dl (6.4-8.2)
[2021-02-25 00:10] LABS: ALK PHOS 111 U/L (45-117)
[2021-02-25] MEDS ORDERED: ONDANSETRON 4 MG/2 ML VIAL IVPUSH ONE (03:48)
[2021-02-25] MEDS ORDERED: ONDANSETRON 4 MG/2 ML VIAL ONE (03:52)
[2021-02-25] MEDS ORDERED: morphine CARPU-JECT 4 MG/1 ML DISP.SYRIN IVPUSH ONE (04:46)
[2021-02-25] MEDS ORDERED: morphine SULFATE 4 MG/ML VIAL ONE (04:51)
[2021-02-25] MEDS: LACTATED RINGERS SOLUTION 1,000 ML/1,000 ML INFUS.BAG IV SCH ×2 (08:00→13:03)
[2021-02-25] MEDS: SODIUM CHLORIDE 1,000 ML IV SCH (08:25)
[2021-02-25] MEDS ORDERED: HEPARIN NA (PORCINE) 5,000 UNITS/ML 1ML VIAL SQ SCH (10:00)
[2021-02-25] MEDS: ACETAMINOPHEN 1000 MG/100 ML BAG IVPB PRN ×2 (13:01→21:40)
[2021-02-25 13:19] VITALS: BMI 32.6
[2021-02-26 11:09] LABS: BASO % 0.8 % (0-2.0); EOS % 3.2 % (0-4.5); HEMATOCRIT 40.7 % (35.4-49); HEMOGLOBIN 13.3 GM/dL (11.7-16.9); LYMPH % 14.6 % (8-40); MCH 25.2 pg (25.7-33.7); MCHC 32.7 g/dl (32.0-35.9); MEAN CELL VOLUME 77.2 fl (80-96); MEAN PLT VOLUME 8.2 fl (7.5-11.1); MONO % 12.1 % (3.8-10.2); NEUT % 69.3 % (42.8-82.8); PLATELET COUNT 235 10^3/uL (134-434); RBC 5.27 M/mm3 (4.00-5.60); RDW 15.2 % (11.9-15.9); WHITE BLOOD COUNT 6.2 K/mm3 (4.0-10.0)
[2021-02-26 11:33] LABS: CALCIUM 8.6 mg/dL (8.5-10.1)
[2021-02-26 11:34] LABS: ALBUMIN 3.3 g/dl (3.4-5.0); BLOOD UREA NITROGEN 18.7 mg/dL (7-18); MAGNESIUM 2.1 mg/dL (1.8-2.4)
[2021-02-26 11:36] LABS: PHOSPHOROUS 2.2 mg/dL (2.5-4.9)
[2021-02-26 11:37] LABS: CREATININE 1.2 mg/dL (0.55-1.3)
[2021-02-26 11:38] LABS: BILIRUBIN,TOTAL 1.6 mg/dL (0.2-1); TOT PROT 6.7 g/dl (6.4-8.2)
[2021-02-26] MEDS: SODIUM CHLORIDE 1,000 ML IV SCH (12:00)
[2021-02-26] MEDS: HEPARIN NA (PORCINE) 5,000 UNITS/ML 1ML VIAL SQ SCH ×3 (12:05→21:41)
[2021-02-26] MEDS: LACTATED RINGERS SOLUTION 1,000 ML/1,000 ML INFUS.BAG IV SCH (12:05)
[2021-02-26] MEDS: ATORVASTATIN CA 10 MG TABLET (FP) PO SCH (13:05)
[2021-02-26] MEDS: METOPROLOL TARTRATE 25 MG TABLET (FP) PO SCH ×2 (13:05→21:40)
[2021-02-26] MEDS: FINASTERIDE 5 MG TABLET (FP) PO SCH (13:05)
[2021-02-26] MEDS: PANTOPRAZOLE 20 MG TABLET PO SCH (13:05)
[2021-02-26] MEDS ORDERED: BENZOCAINE/MENTH/CETYLPYRD CL 1 EACH LOZENGE MM PRN (21:05)
[2021-02-26] MEDS ORDERED: MELATONIN 5 MG TABLETS PO SCH (22:00)
[2021-02-27] MEDS: HEPARIN NA (PORCINE) 5,000 UNITS/ML 1ML VIAL SQ SCH ×2 (05:21→14:18)
[2021-02-27] MEDS ORDERED: POTASSIUM PHOSPHATE 30 MM in DEXTROSE 5%-WATER - 500 ML IVPB ONE (08:30)
[2021-02-27] MEDS: POTASSIUM CHLORIDE TABS 20 MEQ TABLET.ER (FP) PO SCH ×2 (09:59→18:44)
[2021-02-27] MEDS ORDERED: ASPIRIN COATED 81 MG TABLET.EC PO SCH (10:00)
[2021-02-27] MEDS: METOPROLOL TARTRATE 25 MG TABLET (FP) PO SCH (10:00)
[2021-02-27] MEDS: ATORVASTATIN CA 10 MG TABLET (FP) PO SCH (10:00)
[2021-02-27] MEDS: PANTOPRAZOLE 20 MG TABLET PO SCH (10:00)
[2021-02-27] MEDS: FINASTERIDE 5 MG TABLET (FP) PO SCH (10:00)
[2021-02-27] MEDS: SODIUM CHLORIDE 1,000 ML IV SCH (10:09)
[2021-02-27 14:17] LABS: BASO % 1.2 % (0-2.0); EOS % 5.6 % (0-4.5); HEMATOCRIT 36.4 % (35.4-49); HEMOGLOBIN 11.8 GM/dL (11.7-16.9); LYMPH % 21.2 % (8-40); MCHC 32.4 g/dl (32.0-35.9); MEAN CELL VOLUME 77.3 fl (80-96); MONO % 11.5 % (3.8-10.2); NEUT % 60.5 % (42.8-82.8); PLATELET COUNT 177 10^3/uL (134-434); RBC 4.71 M/mm3 (4.00-5.60); RDW 14.9 % (11.9-15.9); WHITE BLOOD COUNT 4.1 K/mm3 (4.0-10.0)
[2021-02-27 14:27] VITALS: BP 146/82; PULSE 64; TEMP 98.7
[2021-02-27 14:36] LABS: BLOOD UREA NITROGEN 12.1 mg/dL (7-18); CALCIUM 8.2 mg/dL (8.5-10.1)
[2021-02-27 14:37] LABS: ALBUMIN 2.8 g/dl (3.4-5.0)
[2021-02-27 14:40] LABS: CREATININE 1.1 mg/dL (0.55-1.3); PHOSPHOROUS 3.3 mg/dL (2.5-4.9)
[2021-02-27 14:41] LABS: BILIRUBIN,TOTAL 1.3 mg/dL (0.2-1); TOT PROT 6.3 g/dl (6.4-8.2)
== END 2021-02-27 19:36 | disposition home or self-care (01) | DRG 247 ==
LOC: JER 21:52 → JERBED 02-25 06:52 → J6S 02-25 12:01
PROVIDERS: ADMIT Internal Medicine; ATTEND Internal Medicine
PROC: 0D9670Z Drainage of Stomach with Drainage Device, Via Natural or Artificial Opening (ICD-10-PCS; principal; 2021-02-25)
DX: K56.600 Partial intestinal obstruction, unspecified as to cause (principal); I10 Essential (primary) hypertension; E11.9 Type 2 diabetes mellitus without complications; K21.9 Gastro-esophageal reflux disease without esophagitis; I25.10 Atherosclerotic heart disease of native coronary artery without angina pectoris; M19.90 Unspecified osteoarthritis, unspecified site; D72.829 Elevated white blood cell count, unspecified; N17.9 Acute kidney failure, unspecified; D18.09 Hemangioma of other sites; Q61.9 Cystic kidney disease, unspecified; Z86.711 Personal history of pulmonary embolism
CPT/HCPCS: 36415; 71045-TC-FY; 74019-TC-FY; 74177-TC; 80053; 82550; 83690; 83735; 84100; 84484; 85025; 85610; 85730; 86850; 86900; 86901; 93005; 93010; 93970-TC; 99285-25; C9803-CS; J1644; U0003; U0005

== ENCOUNTER 2022-03-07 22:38 | Emergency (ER) | payer OTHER ==
[2022-03-07 22:42] VITALS: RESP 18; TEMP 97; BMI 31.6
[2022-03-08 00:55] LABS: INR 1.15 (0.83-1.09); PROTHROMBIN TIME (PATIENT) 13.3 SEC (9.7-13.0)
[2022-03-08 00:58] LABS: ACTIVATED PTT 29.7 SECONDS (25.2-36.5)
[2022-03-08 01:11] LABS: BASO % 2.6 % (0-2.0); EOS % 4.8 % (0-4.5); HEMATOCRIT 39.2 % (35.4-49); HEMOGLOBIN 13.5 GM/dL (11.7-16.9); LYMPH % 20.8 % (8-40); MCH 25.8 pg (25.7-33.7); MCHC 34.6 g/dl (32.0-35.9); MEAN CELL VOLUME 74.7 fl (80-96); MEAN PLT VOLUME 8.1 fl (7.5-11.1); MONO % 12.6 % (3.8-10.2); NEUT % 59.2 % (42.8-82.8); PLATELET COUNT 218 10^3/uL (134-434); RBC 5.24 M/mm3 (4.00-5.60); RDW 14.8 % (11.9-15.9); WHITE BLOOD COUNT 6.4 K/mm3 (4.0-10.0)
[2022-03-08 01:12] LABS: ALBUMIN 3.6 g/dl (3.4-5.0); CALCIUM 8.9 mg/dL (8.5-10.1)
[2022-03-08 01:13] LABS: BLOOD UREA NITROGEN 22.1 mg/dL (7-18)
[2022-03-08 01:16] LABS: CREATININE 1.4 mg/dL (0.55-1.3)
[2022-03-08 01:17] LABS: BILIRUBIN,TOTAL 1.2 mg/dL (0.2-1); TOT PROT 7.2 g/dl (6.4-8.2)
[2022-03-08 01:56] VITALS: BP 127/77; PULSE 74
[2022-03-08 02:30] LABS: EPI CELLS 14 /uL (0-25.1); HYALINE CASTS 3 /uL (0-3.1); URINE APPEARANCE CLEAR; URINE BACTERIA 14 /uL (0-1359); URINE BILIRUBIN NEGATIVE (NEGATIVE); URINE COLOR YELLOW; URINE GLUCOSE (UA) NEGATIVE (NEGATIVE); URINE KETONE NEGATIVE (NEGATIVE); URINE LEUK ESTERASE NEGATIVE (NEGATIVE); URINE NITRITE NEGATIVE (NEGATIVE); URINE PROTEIN NEGATIVE (NEGATIVE); URINE RBC 35 /uL (0-23.9); URINE UROBILINOGEN 0.2 mg/dL (0.2-1.0)
== END 2022-03-08 03:22 | disposition home or self-care (01) ==
LOC: JER 22:38
DX: R10.30 Lower abdominal pain, unspecified (principal)
CPT/HCPCS: 0241U-QW; 36415; 74176-TC; 80053; 81003; 83605; 83690; 85025; 85610; 85730; 86850; 86900; 86901; 87086; 93005; 93010; 99285-25

== ENCOUNTER 2022-06-19 18:20 | Inpatient (IN) | payer OTHER ==
[2022-06-19] MEDS ORDERED: morphine CARPU-JECT 4 MG/1 ML DISP.SYRIN IVPUSH ONE ×2 (18:54→21:27)
[2022-06-19] MEDS ORDERED: morphine SULFATE 4 MG/ML VIAL ONE ×2 (19:18→21:44)
[2022-06-19] MEDS ORDERED: ONDANSETRON 4 MG/2 ML VIAL IVPUSH ONE ×2 (19:25→21:26)
[2022-06-19] MEDS ORDERED: ONDANSETRON 4 MG/2 ML VIAL ONE ×2 (19:34→21:43)
[2022-06-19 20:00] LABS: BASO % 0.7 % (0-2.0); EOS % 0.2 % (0-4.5); HEMATOCRIT 43.1 % (35.4-49); HEMOGLOBIN 14.8 GM/dL (11.7-16.9); LYMPH % 3.9 % (8-40); MCH 25.8 pg (25.7-33.7); MCHC 34.3 g/dl (32.0-35.9); MEAN CELL VOLUME 75.2 fl (80-96); MEAN PLT VOLUME 8.7 fl (7.5-11.1); MONO % 6.1 % (3.8-10.2); NEUT % 89.1 % (42.8-82.8); PLATELET COUNT 242 10^3/uL (134-434); RBC 5.73 M/mm3 (4.00-5.60); RDW 15.3 % (11.9-15.9); WHITE BLOOD COUNT 11.8 K/mm3 (4.0-10.0)
[2022-06-19 20:19] LABS: CALCIUM 9.2 mg/dL (8.5-10.1)
[2022-06-19 20:20] LABS: BLOOD UREA NITROGEN 21.2 mg/dL (7-18)
[2022-06-19 20:22] LABS: CREATININE 1.3 mg/dL (0.55-1.3)
[2022-06-19 20:24] LABS: BILIRUBIN,TOTAL 1.5 mg/dL (0.2-1); TOT PROT 8.2 g/dl (6.4-8.2)
[2022-06-19 20:33] LABS: LACTIC ACID 3.8 mmol/L (0.4-2.0)
[2022-06-19] MEDS ORDERED: SODIUM CHLORIDE 0.9% 500 ML INFUS.BAG IV ONE (20:35)
[2022-06-19] MEDS ORDERED: LIDOCAINE HCL 2% JELLY 10 ML CARTRIDGE UR ONE (20:35)
[2022-06-19] MEDS ORDERED: LIDOCAINE HCL 2% JELLY 10 ML CARTRIDGE ONE (20:43)
[2022-06-19] MEDS ORDERED: LACTATED RINGERS SOLUTION 1000 ML INFUS.BAG IV ONE (23:04)
[2022-06-19] MEDS ORDERED: morphine CARPU-JECT 4 MG/1 ML DISP.SYRIN IVPUSH PRN (23:05)
[2022-06-20] MEDS: LACTATED RINGERS SOLUTION 1,000 ML/1,000 ML INFUS.BAG IV SCH ×2 (01:30→10:08)
[2022-06-20] MEDS ORDERED: morphine SULFATE 4 MG/ML VIAL ONE (01:31)
[2022-06-20] MEDS: morphine SULFATE 4 MG/ML VIAL IVPUSH PRN ×3 (01:33→21:41)
[2022-06-20] MEDS ORDERED: TRIMETHOBENZAMIDE HCL 200MG/2ML INJ IM ONE ×2 (01:53→02:18)
[2022-06-20 02:04] LABS: LACTIC ACID 3.4 mmol/L (0.4-2.0)
[2022-06-20] MEDS ORDERED: ACETAMINOPHEN 1000 MG/100 ML BAG IVPB PRN (02:14)
[2022-06-20] MEDS ORDERED: ONDANSETRON 4 MG/2 ML VIAL IVPUSH PRN (02:24)
[2022-06-20 03:51] LABS: EPI CELLS 2 /uL (0-25.1); HYALINE CASTS 0 /uL (0-3.1); URINE APPEARANCE CLEAR; URINE BACTERIA 2 /uL (0-1359); URINE BILIRUBIN NEGATIVE (NEGATIVE); URINE COLOR YELLOW; URINE GLUCOSE (UA) TRACE (NEGATIVE); URINE KETONE TRACE (NEGATIVE); URINE LEUK ESTERASE NEGATIVE (NEGATIVE); URINE NITRITE NEGATIVE (NEGATIVE); URINE PROTEIN TRACE (NEGATIVE); URINE RBC 74 /uL (0-23.9); URINE UROBILINOGEN 0.2 mg/dL (0.2-1.0); URINE WBC 12 /uL (0-25.8)
[2022-06-20 05:28] VITALS: BMI 31.9
[2022-06-20] MEDS: ACETAMINOPHEN 1000 MG/100 ML BAG IVPB PRN (06:13)
[2022-06-20 08:19] LABS: HEMATOCRIT 39.4 % (35.4-49); HEMOGLOBIN 13.5 GM/dL (11.7-16.9); MCH 25.8 pg (25.7-33.7); MCHC 34.3 g/dl (32.0-35.9); MEAN CELL VOLUME 75.1 fl (80-96); MEAN PLT VOLUME 8.4 fl (7.5-11.1); PLATELET COUNT 221 10^3/uL (134-434); RBC 5.24 M/mm3 (4.00-5.60); RDW 15.5 % (11.9-15.9); WHITE BLOOD COUNT 6.5 K/mm3 (4.0-10.0)
[2022-06-20 08:42] LABS: ALBUMIN 3.2 g/dl (3.4-5.0); CALCIUM 8.6 mg/dL (8.5-10.1)
[2022-06-20 08:46] LABS: CREATININE 1.1 mg/dL (0.55-1.3)
[2022-06-20 08:47] LABS: BILIRUBIN,TOTAL 1.7 mg/dL (0.2-1); TOT PROT 6.8 g/dl (6.4-8.2)
[2022-06-20] MEDS: SODIUM CHLORIDE 1,000 ML IV SCH (17:35)
[2022-06-20] MEDS: BENZOCAINE/MENTH/CETYLPYRD CL 1 EACH LOZENGE MM PRN (17:47)
[2022-06-20] MEDS ORDERED: METOPROLOL TARTRATE 5 MG/5 ML VIAL IVPUSH SCH (22:00)
[2022-06-21] MEDS: SODIUM CHLORIDE 1,000 ML IV SCH ×2 (05:53→05:55)
[2022-06-21] MEDS: LACTATED RINGERS SOLUTION 1,000 ML/1,000 ML INFUS.BAG IV SCH (05:54)
[2022-06-21] MEDS: BENZOCAINE/MENTH/CETYLPYRD CL 1 EACH LOZENGE MM PRN (06:51)
[2022-06-21] MEDS: ACETAMINOPHEN 1000 MG/100 ML BAG IVPB PRN (07:05)
[2022-06-21 08:21] LABS: BASO % 0.8 % (0-2.0); EOS % 1.9 % (0-4.5); HEMATOCRIT 37.3 % (35.4-49); HEMOGLOBIN 12.5 GM/dL (11.7-16.9); LYMPH % 11.7 % (8-40); MCH 25.5 pg (25.7-33.7); MCHC 33.6 g/dl (32.0-35.9); MEAN CELL VOLUME 75.9 fl (80-96); MEAN PLT VOLUME 8.1 fl (7.5-11.1); MONO % 17.9 % (3.8-10.2); NEUT % 67.7 % (42.8-82.8); PLATELET COUNT 209 10^3/uL (134-434); RBC 4.92 M/mm3 (4.00-5.60); RDW 15.9 % (11.9-15.9); WHITE BLOOD COUNT 4.7 K/mm3 (4.0-10.0)
[2022-06-21 08:41] LABS: ALBUMIN 3.1 g/dl (3.4-5.0); CALCIUM 8.4 mg/dL (8.5-10.1)
[2022-06-21 08:42] LABS: BLOOD UREA NITROGEN 17.9 mg/dL (7-18); MAGNESIUM 1.8 mg/dL (1.8-2.4)
[2022-06-21 08:44] LABS: PHOSPHOROUS 2.1 mg/dL (2.5-4.9)
[2022-06-21 08:45] LABS: CREATININE 1.1 mg/dL (0.55-1.3)
[2022-06-21 08:46] LABS: BILIRUBIN,TOTAL 1.6 mg/dL (0.2-1); TOT PROT 6.6 g/dl (6.4-8.2)
[2022-06-21] MEDS: PANTOPRAZOLE SODIUM 40 MG VIAL IVPUSH SCH (09:53)
[2022-06-21] MEDS ORDERED: DEXTROSE 5%-NORMAL SALINE 1,000 ML IV SCH (14:30)
[2022-06-21] MEDS: DEXTROSE 5%-NORMAL SALINE 1,000 ML IV SCH (16:59)
[2022-06-22 08:16] LABS: BASO % 0.5 % (0-2.0); EOS % 2.9 % (0-4.5); HEMATOCRIT 37.2 % (35.4-49); HEMOGLOBIN 12.7 GM/dL (11.7-16.9); LYMPH % 12.9 % (8-40); MCH 25.8 pg (25.7-33.7); MCHC 34.1 g/dl (32.0-35.9); MEAN CELL VOLUME 75.7 fl (80-96); MONO % 11.8 % (3.8-10.2); NEUT % 71.9 % (42.8-82.8); PLATELET COUNT 206 10^3/uL (134-434); RBC 4.91 M/mm3 (4.00-5.60); RDW 15.7 % (11.9-15.9); WHITE BLOOD COUNT 5.5 K/mm3 (4.0-10.0)
[2022-06-22 08:40] LABS: CALCIUM 8.3 mg/dL (8.5-10.1)
[2022-06-22 08:41] LABS: ALBUMIN 3.1 g/dl (3.4-5.0); BLOOD UREA NITROGEN 12.2 mg/dL (7-18); MAGNESIUM 1.8 mg/dL (1.8-2.4)
[2022-06-22 08:45] LABS: BILIRUBIN,TOTAL 1.4 mg/dL (0.2-1); TOT PROT 6.8 g/dl (6.4-8.2)
[2022-06-22] MEDS: PANTOPRAZOLE SODIUM 40 MG VIAL IVPUSH SCH (09:54)
[2022-06-22] MEDS: DEXTROSE 5%-NORMAL SALINE 1,000 ML IV SCH ×2 (09:55→17:42)
[2022-06-22] MEDS ORDERED: POTASSIUM CHLORIDE ORAL LIQUID 20 MEQ/15 ML PO ONE (12:45)
[2022-06-23] MEDS: DEXTROSE 5%-NORMAL SALINE 1,000 ML IV SCH (03:16)
[2022-06-23] MEDS: PANTOPRAZOLE SODIUM 40 MG VIAL IVPUSH SCH (10:57)
[2022-06-23] MEDS ORDERED: ACETAMINOPHEN 650 MG/20.3 ML ORAL SOLUTION (CUPS) PO PRN (15:55)
[2022-06-23] MEDS ORDERED: SENNOSIDES 8.6MG TABLET (FP) PO PRN (20:24)
[2022-06-24 08:10] LABS: BASO % 1.1 % (0-2.0); EOS % 4.5 % (0-4.5); HEMATOCRIT 37.2 % (35.4-49); HEMOGLOBIN 12.9 GM/dL (11.7-16.9); LYMPH % 13.5 % (8-40); MCH 25.9 pg (25.7-33.7); MCHC 34.6 g/dl (32.0-35.9); MEAN CELL VOLUME 74.9 fl (80-96); MEAN PLT VOLUME 7.7 fl (7.5-11.1); MONO % 11.8 % (3.8-10.2); NEUT % 69.1 % (42.8-82.8); PLATELET COUNT 207 10^3/uL (134-434); RBC 4.96 M/mm3 (4.00-5.60); RDW 15.3 % (11.9-15.9); WHITE BLOOD COUNT 5.5 K/mm3 (4.0-10.0)
[2022-06-24 08:27] LABS: ALBUMIN 3.1 g/dl (3.4-5.0); BLOOD UREA NITROGEN 9.8 mg/dL (7-18); CALCIUM 8.7 mg/dL (8.5-10.1)
[2022-06-24 08:29] LABS: MAGNESIUM 1.8 mg/dL (1.8-2.4)
[2022-06-24 08:32] LABS: TOT PROT 6.8 g/dl (6.4-8.2)
[2022-06-24 08:33] LABS: BILIRUBIN,TOTAL 1.2 mg/dL (0.2-1)
[2022-06-24] MEDS ORDERED: POTASSIUM CHLORIDE TABS 20 MEQ TABLET.ER (FP) PO ONE (08:35)
[2022-06-24] MEDS: PANTOPRAZOLE SODIUM 40 MG VIAL IVPUSH SCH (09:37)
[2022-06-24] MEDS ORDERED: ASPIRIN COATED 81 MG TABLET.EC PO SCH (10:00)
[2022-06-24] MEDS ORDERED: METOPROLOL TARTRATE 25 MG TABLET (FP) PO SCH (10:00)
[2022-06-24] MEDS ORDERED: FINASTERIDE 5 MG TABLET (FP) PO SCH (10:00)
[2022-06-24] MEDS ORDERED: POLYETHYLENE GLYCOL (HEALTHYLAX) 3350 17 GM PACKET PO SCH (10:00)
[2022-06-24] MEDS ORDERED: PANTOPRAZOLE 40 MG TABLET PO SCH (10:00)
[2022-06-24 11:18] VITALS: BP 140/85; PULSE 76; RESP 20; TEMP 98.4
[2022-06-24] MEDS ORDERED: ATORVASTATIN CA 10 MG TABLET (FP) PO SCH (22:00)
== END 2022-06-24 13:35 | disposition home or self-care (01) | DRG 389 ==
LOC: JER 18:20 → JERBED 23:45 → J7W 06-20 04:26
PROVIDERS: ADMIT Internal Medicine; ATTEND Internal Medicine
PROC: 0D9670Z Drainage of Stomach with Drainage Device, Via Natural or Artificial Opening (ICD-10-PCS; principal; 2022-06-20)
DX: K56.50 Intestinal adhesions [bands], unspecified as to partial versus complete obstruction (principal); E87.20 Acidosis, unspecified; R65.10 Systemic inflammatory response syndrome (SIRS) of non-infectious origin without acute organ dysfunction; I10 Essential (primary) hypertension; K21.9 Gastro-esophageal reflux disease without esophagitis
CPT/HCPCS: 0241U-QW; 36415; 71045-TC-FY; 74019-TC-FY; 74177-TC; 80053; 81003; 82962; 83605; 83735; 84100; 85025; 85027; 86850; 86900; 86901; 87040; 87086; 93005; 93010; 99285-25; Q9967